=== PATIENT | female | born 1990 | race Caucasian/White ===

== ENCOUNTER → 2017-07-26 14:24 | Outpatient (CLI) | payer OTHER, SELFPAY ==
[2017-07-26 15:27] LABS: hCG Titer Quant., Serum < 1 mIU/mL (<9 non-preg)
== END ==
PROVIDERS: Visit Provider Obstetrics & Gynecology
DX: N91.2 Amenorrhea, unspecified (principal)
CPT/HCPCS: 36415; 84702

== ENCOUNTER → 2017-10-11 15:51 | Outpatient (CLI) | payer OTHER, SELFPAY ==
[2017-10-11 18:43] LABS: Chlamydia Trachomatis by PCR Negative (Negative)
[2017-10-11 18:44] LABS: Neisserai gonorrhoeae by PCR Negative (Negative); Probe Check PASS; Sample Adequacy Control PASS; Specimen Processing Control PASS
[2017-10-19 10:58] LABS: HPV HC, High Risk Negative (Negative)
[2017-10-19 11:00] LABS: HPV Reflexed? YES, CHARGE PATIENT
== END ==
PROVIDERS: Visit Provider Obstetrics & Gynecology
DX: Z12.4 Encounter for screening for malignant neoplasm of cervix (principal); Z11.3 Encounter for screening for infections with a predominantly sexual mode of transmission
CPT/HCPCS: 87491; 87591; 87624; 88175; G0145

== ENCOUNTER → 2017-11-01 14:17 | Outpatient (CLI) | payer OTHER, SELFPAY ==
[2017-11-01 14:59] LABS: Absolute Lymphocyte Count 1.88 X10^3/ul (0.83-4.51); Absolute Neutrophil Count 5.6 X10^3/uL (2.0-7.7); Basophil# 0.01 X10^3/uL; Basophil% 0.1 % (0-1); Eosinophil# 0.18 X10^3/uL; Eosinophils% 2.2 % (0-5); Hematocrit 37.2 % (37-47); Hemoglobin 12.8 g/dl (12.0-15.0); Lymphocyte # 1.88 X10^3/ul (4.0); Lymphocyte % 22.8 % (19-41); Mean Corp Hgb Conc 34.4 g/gl (32-36); Mean Corpuscular Hgb 30.3 pg (27.0-32.0); Mean Corpuscular Volume 87.9 fL (81-99); Mean Platelet Vol. 10.2 fl (6.2-12.0); Monocyte# 0.56 X10^3/uL; Monocyte% 6.8 % (0-10); Neutrophil # 5.61 X10^3/uL (2.7-7.7); Neutrophil % 68.1 % (47-70); Platelet Count 195 K/mm3 (150-450); RBC Distribution Width CV 13.2 % (11.6-14.6); RBC Distribution Width SD 42.3 fl (35.1-43.9); Red Blood Count 4.23 M/mm3 (4.2-5.4); White Blood Count 8.2 K/mm3 (4.4-11.0)
[2017-11-01 15:01] LABS: POSITIVE COUNT NO; POSITIVE DIFFERENTIAL NO; POSITIVE MORPHOLOGY NO
[2017-11-01 15:09] LABS: Color, Urine Yellow (Yellow); Glucose, Dipstick Normal (Normal); Ketone-Dipstick Negative (Negative); Leukocyte Esterase-Dipstick Negative /ul (Negative); Nitrite-Dipstick Negative (Negative); Occult Blood-Urine Negative /ul (Negative); Protein-Dipstick Negative (Negative); Urine Bilirubin Dipstick Negative (Negative); Urine Clarity Clear (Clear); Urine Urobilinogen Normal (Normal); Urine pH 6.5 (5.0 - 8.0)
[2017-11-01 15:30] LABS: Thyroid Stim Hormone (TSH) 1.58 uIU/mL (0.358-3.74)
[2017-11-01 16:21] LABS: HIV - WCH Non-Reactive (Nonreactive)
[2017-11-02 14:17] LABS: HEPATITIS B SURFACE AG Negative (Negative); Hep C Antibodies <0.1 s/co ratio (0.0-0.9)
[2017-11-08 09:09] LABS: Prenatal RPR NONREACTIVE (NONREACTIVE)
== END ==
PROVIDERS: Visit Provider Obstetrics & Gynecology
DX: Z34.81 Encounter for supervision of other normal pregnancy, first trimester (principal)
CPT/HCPCS: 36415; 81002; 84443; 85025; 86703; 86762; 86803; 87340

== ENCOUNTER 2018-03-01 09:24 | Outpatient (CLI) | payer OTHER, SELFPAY ==
[2018-03-01 09:25] VITALS: BP 120/55; PULSE 134; RESP 16; TEMP 37.3; O2SAT 99; BMI 28.0
--- NOTE | 2018-03-01 09:43 | ED.DCSUM_ITS ---
- ER Visit Summary Date of Service: 03/01/18 Chief Complaint: Nausea and vomiting History of Present Illness: The patient is a 27 F 27 weeks who presents for 24 hours of nausea and vomiting. Patient has been having vomiting after any oral intake, including water. She has mild abdominal cramping after vomiting but otherwise no abdominal pain. No fever, chest pain, shortness of breath, cough, congestion, or urinary symptoms. Patient has had several normal stools but no diarrhea. She has not had issues with persistent nausea or vomiting during this . She has no other medical problems. She is on vitamins. Physical Examination: Vital signs: afebrile, normotensive and tachycardic, no hypoxia on room air General: well nourished, well developed, in no distress Skin: warm, dry, no rash, no pallor HEENT: normocephalic and atraumatic; PERRL, EOMI, moist mucous membranes Cardiovascular: Tachycardic rate and rhythm without murmurs, no peripheral edema, 2+ pulses all distal extremities Respiratory: No increased work of breathing, lungs are clear to auscultation bilaterally, no rales, rhonchi or wheezing Abdominal: Abdomen is soft, gravid, nontender with normoactive bowel sounds, no guarding or rebound, no masses MSK: Moves all extremities, no deformities, normal strength Neuro: Awake and alert, oriented ?4. No facial droop, sensation and motor function intact and symmetric Test Results: Abnormal Lab Results 03/01/18 03/01/18 03/01/18 09:55 09:55 09:55 WBC 6.1 RBC 3.95 L Hgb 12.7 Hct 36.6 L MCV 92.7 MCH 32.2 H MCHC 34.7 RDW 13.2 RDW Differential 45.2 H Plt Count 130 L MPV 10.1 Immature Gran % (Auto) 0.200 Neut % (Auto) 86.2 H Lymph % (Auto) 8.6 L [place] % (Auto) 4.6 Eos % (Auto) 0.2 Baso % (Auto) 0.2 Absolute Neuts (auto) 5.3 Absolute Lymphs (auto) 0.53 L Total Counted Not Reportable Sodium 136 Potassium 3.4 L Chloride 107 Carbon Dioxide 20.0 L Anion Gap 9 BUN 7 Creatinine 0.56 Estim Creat Clear Calc 156.31 Est GFR (MDRD) Af Amer 166 Est GFR (MDRD) Non-Af 137 BUN/Creatinine Ratio 12.5 Glucose 80 Calcium 8.3 L Total Bilirubin 0.40 AST 20 ALT 27 Alkaline Phosphatase 76 Total Protein 6.6 Albumin 2.9 L Globulin 3.7 Albumin/Globulin Ratio 0.8 L Lipase 116 Urine Color Yellow Urine Clarity Cloudy Urine pH 5.0 Ur Specific [place] 1.025 Urine Protein 30 H Urine Glucose (UA) Normal Urine Ketones 150 H Urine Occult Blood 25 H Urine Nitrite Negative Urine Bilirubin 1 H Urine Urobilinogen Normal Ur Leukocyte Esterase 500 H Urine RBC 0 SEEN Urine WBC 10-25 SEEN Ur Squamous Epith Cells 25-50 SEEN Urine Bacteria 0 SEEN Urine Mucus 0 SEEN Medications Given Discontinued Medications Lactated Ringer's () 1,000 mls @ 999 mls/hr IV .Q1H1M ANDRE Stop: 03/01/18 10:50 Last Admin: 03/01/18 09:56 Dose: 999 mls/hr Ondansetron HCl (Zofran) 4 mg IV X1 ONE Stop: 03/01/18 09:41 Last Admin: 03/01/18 09:56 Dose: 4 mg Emergency Department Course and Treatment: Patient was given IV fluids and Zofran. heart rate was 147. Labs were performed, showing no leukocytosis, no anemia, no electrolyte derangements, and normal hepatic function. Urine showed gross contamination with epithelial cells, no bacteriuria. Ketones present and specific gravity elevated consistent with dehydration. After receiving IV fluids and Zofran, patient was feeling better. She had no further nausea. Heart rate now is 90. Patient was given a p.o. challenge and tolerated it. Patient was discussed with Dr. Harmeet Reyes who requested the patient be discharged to the [facility] [place] for further evaluation and monitoring of the baby. Patient was amenable to this plan. She was discharged with her symptoms greatly improved. Treatment Plan: [] Disposition: [] Impression: Nausea and vomiting, dehydration, 27 weeks This note was generated with [employer] dictation software. It may contain incorrect words, spelling, and punctuation that were not noted in review of the chart prior to signing ED Disposition - Plan for ED Patient: Disposition: Acute Care Hospital [facility] Chief Complaint: Nausea/Vomiting
[2018-03-01] MEDS: Lactated Ringers 1,000 ML 999 ML IV (09:56)
[2018-03-01] MEDS: Ondansetron 4 MG/2 ML Vial IV (09:56)
[2018-03-01 10:07] LABS: Bacteria 0 SEEN /hpf (None Seen); Mucous, Urine 0 SEEN /hpf (<or=2+); Red Blood Cells-Urine 0 SEEN /hpf (0-5)
[2018-03-01 10:12] LABS: Absolute Lymphocyte Count 0.53 X10^3/ul (0.83-4.51); Absolute Neutrophil Count 5.3 X10^3/uL (2.0-7.7); Basophil# 0.01 X10^3/uL; Basophil% 0.2 % (0-1); Eosinophil# 0.01 X10^3/uL; Eosinophils% 0.2 % (0-5); Hematocrit 36.6 % (37-47); Hemoglobin 12.7 g/dl (12.0-15.0); Lymphocyte # 0.53 X10^3/ul (4.0); Lymphocyte % 8.6 % (19-41); Mean Corp Hgb Conc 34.7 g/gl (32-36); Mean Corpuscular Hgb 32.2 pg (27.0-32.0); Mean Corpuscular Volume 92.7 fL (81-99); Mean Platelet Vol. 10.1 fl (6.2-12.0); Monocyte# 0.28 X10^3/uL; Monocyte% 4.6 % (0-10); Neutrophil # 5.29 X10^3/uL (2.7-7.7); Neutrophil % 86.2 % (47-70); Platelet Count 130 K/mm3 (150-450); RBC Distribution Width CV 13.2 % (11.6-14.6); RBC Distribution Width SD 45.2 fl (35.1-43.9); Red Blood Count 3.95 M/mm3 (4.2-5.4); White Blood Count 6.1 K/mm3 (4.4-11.0)
[2018-03-01 10:13] LABS: Differential Indicated SCAN CRITERIA MET; POSITIVE COUNT NO; POSITIVE DIFFERENTIAL YES; POSITIVE MORPHOLOGY NO
[2018-03-01 10:15] LABS: Color, Urine Yellow (Yellow); Glucose, Dipstick Normal (Normal); Ketone-Dipstick 150 mg/dl (Negative); Leukocyte Esterase-Dipstick 500 /ul (Negative); Nitrite-Dipstick Negative (Negative); Occult Blood-Urine 25 /ul (Negative); Protein-Dipstick 30 mg/dl (Negative); Specific Gravity, Urine 1.025 (1.002-1.030); Urine Bilirubin Dipstick 1 mg/dL (Negative); Urine Clarity Cloudy (Clear); Urine Urobilinogen Normal (Normal)
[2018-03-01 10:21] LABS: Squamous Epithelial Cells - UA 25-50 SEEN /hpf (5-10)
[2018-03-01 10:22] LABS: White Blood Cells 10-25 SEEN /hpf (0-5)
[2018-03-01 10:25] LABS: ALB/GLOB Ratio 0.8 RATIO (0.9-2.4); AST(SGOT) 20 U/L (15-37); Alanine Aminotransfer ALT/SGPT 27 U/L (13-56); Albumin, Serum 2.9 g/dL (3.2-5.0); Alkaline Phosphatase 76 U/L (45-117); Anion Gap 9 (5-15); BUN 7 mg/dL (7-18); BUN/Creat Ratio 12.5 RATIO (10-20); Calcium,Total 8.3 mg/dL (8.5-10.1); Chloride 107 mmol/L (98-107); Creatinine, Serum 0.56 mg/dL (0.55-1.02); EST Glomerular Filtration Rate 137 mL/min (>60); Est Glom Filt Rate - Afr Amer 166 mL/min (>60); Estimated Creatinine Clearance 156.31 ml/min; Globulin 3.7 g/dL (2.2-4.2); Glucose 80 mg/dL (74-106); Lipase 116 U/L (73-393); Potassium 3.4 mmol/L (3.5-5.1); Protein, Total 6.6 g/dL (6.4-8.2); Sodium Level 136 mmol/L (136-145)
[2018-03-01 11:29] VITALS: BP 111/62; PULSE 91; RESP 18; O2SAT 100
--- NOTE | 2018-03-01 12:04 | ED.DEP ---
ED Disposition - Plan for ED Patient: Disposition: Acute Care Hospital [facility] Chief Complaint: Nausea/Vomiting Instructions: ED Nausea Vomiting Referrals: Care Physician,No Primary [NON-STAFF] - Neisha Hawkins MD [STAFF PHYSICIAN] - 1-2 Days if not improving Additional Instructions: PLEASE GO IMMEDIATELY TO [facility] FOR AN EVALUATION BY OB.
--- NOTE | 2018-03-01 12:05 | DCINST.ED_ITS ---
ED Disposition - Plan for ED Patient: Disposition: Acute Care Hospital [facility] Chief Complaint: Nausea/Vomiting Instructions: ED Nausea Vomiting Referrals: Care Physician,No Primary [NON-STAFF] - Neisha Hawkins MD [STAFF PHYSICIAN] - 1-2 Days if not improving Additional Instructions: PLEASE GO IMMEDIATELY TO [facility] FOR AN EVALUATION BY OB.
[2018-03-01 12:10] VITALS: BP 111/62; PULSE 91; RESP 18; O2SAT 99
[2018-03-01 12:46] VITALS: BMI 27.6
--- NOTE | 2018-03-01 23:55 | OB.TRI.NOTE ---
- Problem List (1) 26 weeks gestation of Status: Acute History of Present Illness Date of Service: 03/01/18 Was patient seen by the physician?: No Reason For Visit: N/V Final AMISHA: 06/01/18 Gestational age: 26 Weeks and 6 Days Allergies No Known Allergies Allergy (Verified 03/01/18 12:47) Physical Exam Vitals: Vital Signs Temp Pulse Resp BP Pulse Ox 99.1 F 91 18 111/62 99 03/01/18 09:25 03/01/18 12:10 03/01/18 12:10 03/01/18 12:10 03/01/18 12:10 NST - FHR Rate Baby A Baseline: 150 Variability:: Minimal Accelerations:: None Decelerations:: Variable NST Reactive:: Appropriate for gestational age FHR Category:: Category II Uterine Activity:: none Impression/Plan Supervision of normal first , second trimester -Sent from ER for NST following evaluation for nausea and vomiting, now resolved - status AGA, d/c home
== END 2018-03-01 13:50 | disposition home or self-care (01) ==
LOC: ED 12:05 → WPOUT 12:42 → WP 12:43
PROVIDERS: Emergency Provider Emergency Medicine; Family Provider Internal Medicine; PCP Internal Medicine; Visit Provider Obstetrics & Gynecology
DX: O21.2 Late vomiting of pregnancy (principal); O99.283 Endocrine, nutritional and metabolic diseases complicating pregnancy, third trimester; E86.0 Dehydration; Z3A.27 27 weeks gestation of pregnancy
CPT/HCPCS: 59025; 59050; 80053; 81001; 83690; 85025; 96361; 96374; 99218; 99283; J7120; A4216; G0378; J2405

== ENCOUNTER → 2018-03-11 17:05 | Outpatient (CLI) | payer OTHER, SELFPAY ==
[2018-03-11 17:14] LABS: Hemoglobin 11.2 g/dl (12.0-15.0); Mean Corp Hgb Conc 33.9 g/gl (32-36); Mean Corpuscular Hgb 31.7 pg (27.0-32.0); Mean Corpuscular Volume 93.5 fL (81-99); Mean Platelet Vol. 10.7 fl (6.2-12.0); Platelet Count 166 K/mm3 (150-450); RBC Distribution Width CV 13.3 % (11.6-14.6); RBC Distribution Width SD 45.7 fl (35.1-43.9); Red Blood Count 3.53 M/mm3 (4.2-5.4); Scan Indicated on CBC? Y/N NO; White Blood Count 8.1 K/mm3 (4.4-11.0)
[2018-03-11 17:54] LABS: Glucose Challenge Gest 1H 50g 132 mg/dL (70-140)
== END ==
PROVIDERS: Referring Provider Obstetrics & Gynecology; Visit Provider Obstetrics & Gynecology
DX: Z34.83 Encounter for supervision of other normal pregnancy, third trimester (principal)
CPT/HCPCS: 82950; 85027

== ENCOUNTER → 2018-05-02 14:10 | Outpatient (CLI) | payer OTHER, SELFPAY ==
--- OUTSIDE RECORDS SUMMARY | 2018-06-27 13:44 | XMS RPT_ITS ---
:1990 Author Organization [place] Care Team Providers Name Role Phone Neisha Hawkins Attending Unavailable Neisha Hawkins Attending Unavailable Neisha Hawkins Referring Unavailable Bhargavi Weeks Primary Care Unavailable Yue Gipson Attending Unavailable Neisha Hawkins Attending Unavailable Primay Care Physicia, No Primary Care Unavailable Neisha Hawkins Attending Unavailable Neisha Hawkins Referring Unavailable Primay Care Physicia, No Primary Care Unavailable Neisha Hawkins Attending Unavailable Peng Carlos Attending Unavailable Peng Carlos Referring Unavailable Primay Care Physicia, No Primary Care Unavailable PROBLEMS PROBLEMS DATE TYPE CONDITION / CODE ATTENDING STATUS SOURCE 05/02/2018 Unknown Z36.85 - Encounter Neisha Hawkins Active [place] for [facility] screening for Hospital Streptococcus B / Repository Z36.85(ICD-10) 03/13/2018 Unknown Z34.83 - Encounter Neisha Hawkins Active [place] for supervision of Community other normal Hospital , third Repository trimester / Z34.83(ICD-10) 11/01/2017 Unknown Z34.81 - Encounter Neisha Hawkins Active [place] for supervision of Community other normal Hospital , first Repository trimester / Z34.81(ICD-10) 10/12/2017 Unknown Z12.4 - Encounter Neisha [facility] [place] [facility] screening for [facility] malignant neoplasm Hospital of cervix / Repository Z12.4(ICD-10) 10/12/2017 Unknown Z11.3 - Encounter Neisha Hawkins [facility] [place] for screening for [facility] infections with a Hospital predominantly Repository sexual mode of transmission / Z11.3(ICD-10) 07/26/2017 Unknown N91.2 - Amenorrhea, Neisha Hawkins Active [place] unspecified / Community N91.2(ICD-10) Hospital Repository PROCEDURES PROCEDURES No Procedure Records FoundRESULTS RESULTS Observed: 05/02/2018 Status: F Source: [place] CULTURE, GROUP B 10:45 AM [facility] STREPTOCOCCUS REPOSITORY Comments: VAGINAL/RECTAL JEFFRY Culture Group B Beta Streptococcus is not isolated. Performed By: #### M100.1800 #### [facility] [address] [place], [address] CBC-COMPLETE BLOOD CNT Collected: 03/11/2018 Status: F Source: [place] NO DIFF 4:20 PM [facility] REPOSITORY TYPE CODE TESTS RESULT OUT OF RANGE REFERENCE UNITS LAB L100.1000 4.4-11.0 K/mm3 Normal WBC 8.1 LAB L100.1200 4.2-5.4 M/mm3 Low RBC 3.53 LAB L100.1300 12.0-15.0 g/dl Low HGB 11.2 LAB L100.1400 37-47 % Low HCT 33.0 LAB L100.1500 81-99 fL Normal MCV 93.5 LAB L100.1600 27.0-32.0 pg Normal MCH 31.7 LAB L100.1700 32-36 g/gl Normal MCHC 33.9 LAB L100.1810 11.6-14.6 % Normal RDW CV 13.3 LAB L100.1820 35.1-43.9 fl High RDW SD 45.7 LAB L100.1900 150-450 K/mm3 Normal PLT 166 LAB L100.2000 6.2-12.0 fl Normal MPV 10.7 Performed By: #### L100.0500 #### [facility] [address] [place], [address] GLUCOSE CHALLENGE GEST Collected: 03/11/2018 Status: F Source: [place] 1H 50G 4:20 PM [facility] REPOSITORY TYPE CODE TESTS RESULT OUT OF RANGE REFERENCE UNITS LAB L501.0250 70-140 mg/dL Normal GLU GEST 132 50g 1H Performed By: #### L501.0250 #### [facility] [address] [place], [address] EMERGENCY DEPARTMENT Observed: 03/01/2018 Status: F Source: [place] SUMMARY 5:55 PM [facility] REPOSITORY [facility] Medical Records Department [address] [place] [address] Emergency Department Summary 03/01/18 0941 MR#: [id number] Acct: [id number] Name: ALMA SCHULZ Rep #: [id number] : 1990 27 From: Concepcion Pedersen MD PCP: Bhargavi Weeks DO Status: DEP CLI - ER Visit Summary Date of Service: 03/01/18 Chief Complaint: Nausea and vomiting History of Present Illness: The patient is a 27 F 27 weeks who presents for 24 hours of nausea and vomiting. Patient has been having vomiting after any oral intake, including water. She has mild abdominal cramping after vomiting but otherwise no abdominal pain. No fever, chest pain, shortness of breath, cough, congestion, or urinary symptoms. Patient has had several normal stools but no diarrhea. She has not had issues with persistent nausea or vomiting during this . She has no other medical problems. She is on vitamins. Physical Examination: Vital signs: afebrile, normotensive and tachycardic, no hypoxia on room air General: well nourished, well developed, in no distress Skin: warm, dry, no rash, no pallor HEENT: normocephalic and atraumatic; PERRL, EOMI, moist mucous membranes Cardiovascular: Tachycardic rate and rhythm without murmurs, no peripheral edema, 2+ pulses all distal extremities Respiratory: No increased work of breathing, lungs are clear to auscultation bilaterally, no rales, rhonchi or wheezing Abdominal: Abdomen is soft, gravid, nontender with normoactive bowel sounds, no guarding or rebound, no masses MSK: Moves all extremities, no deformities, normal strength Neuro: Awake and alert, oriented 4. No facial droop, sensation and motor function intact and symmetric Test Results: Abnormal Lab Results Medications Given Discontinued Medications Lactated Ringer's () 1,000 mls @ 999 mls/hr IV .Q1H1M ANDRE Stop: 03/01/18 10:50 Last Admin: 03/01/18 09:56 Dose: 999 mls/hr Ondansetron HCl (Zofran) 4 mg IV X1 ONE Stop: 03/01/18 09:41 Last Admin: 03/01/18 09:56 Dose: 4 mg Emergency Department Course and Treatment: Patient was given IV fluids and Zofran. heart rate was 147. Labs were performed, showing no leukocytosis, no anemia, no electrolyte derangements, and normal hepatic function. Urine showed gross contamination with epithelial cells, no bacteriuria. Ketones present and specific gravity elevated consistent with dehydration. After receiving IV fluids and Zofran, patient was feeling better. She had no further nausea. Heart rate now is 90. Patient was given a p.o. challenge and tolerated it. Patient was discussed with Dr. Harmeet Reyes who requested the patient be discharged to the [facility] for further evaluation and monitoring of the baby. Patient was amenable to this plan. She was discharged with her symptoms greatly improved. Treatment Plan: [] Disposition: [] Impression: Nausea and vomiting, dehydration, 27 weeks This note was generated with Rettyation software. It may contain incorrect words, spelling, and punctuation that were not noted in review of the chart prior to signing ED Disposition - Plan for ED Patient: Disposition: [facility] Chief Complaint: Nausea/Vomiting What to do if you have Problems For any increased pain, shortness of breath, bleeding, nausea or vomiting, chest pain, or any unexpected problems, contact your Primary Care Provider. Call [facility] ([phone]) or report to the closest Emergency Room. Call 911 if necessary. 03/01/18 1755 <Electronically signed by Concepcion Pedersen MD> Date Concepcion Pedersen MD Cosigner Signature (If Indicated): Date CC: Bhargavi Weeks DO DISCHARGE INSTRUCTION Observed: 03/01/2018 Status: F Source: [place] 5:24 PM [facility] REPOSITORY [facility] Medical Records Department [address] [place] [address] Discharge Instruction 03/01/18 1204 MR#: [id number] Acct: [id number] Name: ALMA SCHULZ Rep #: [id number] : 1990 27 From: Concepcion Pedersen MD PCP: Bhargavi Weeks DO Status: [facility] ED Disposition - Plan for ED Patient: Disposition: [facility] Chief Complaint: Nausea/Vomiting Instructions: ED Nausea Vomiting Referrals: Care Physician,No Primary [NON-STAFF] - Neisha Hawkins MD [STAFF PHYSICIAN] - 1-2 Days if not improving Additional Instructions: PLEASE GO IMMEDIATELY TO THE [facility] AT [facility] FOR AN EVALUATION BY OB. What to do if you have Problems For any increased pain, shortness of breath, bleeding, nausea or vomiting, chest pain, or any unexpected problems, contact your Primary Care Provider. Call [facility] ([phone]) or report to the closest Emergency Room. Call 911 if necessary. 03/01/18 8694 <Electronically signed by Concepcion Pedersen MD> Date Concepcion Pedersen MD Cosigner Signature (If Indicated): Date CC: Bhargavi Weeks DO CBC W/DIFF, AUTOMATED Collected: 03/01/2018 Status: F Source: [place] 9:55 AM [facility] REPOSITORY TYPE CODE TESTS RESULT OUT OF RANGE REFERENCE UNITS LAB L100.1000 4.4-11.0 K/mm3 Normal WBC 6.1 LAB L100.1200 4.2-5.4 M/mm3 Low RBC 3.95 LAB L100.1300 12.0-15.0 g/dl Normal HGB 12.7 LAB L100.1400 37-47 % Low HCT 36.6 LAB L100.1500 81-99 fL Normal MCV 92.7 LAB L100.1600 27.0-32.0 pg High MCH 32.2 LAB L100.1700 32-36 g/gl Normal MCHC 34.7 LAB L100.1810 11.6-14.6 % Normal RDW CV 13.2 LAB L100.1820 35.1-43.9 fl High RDW SD 45.2 LAB L100.1900 150-450 K/mm3 Low PLT 130 LAB L100.2000 6.2-12.0 fl Normal MPV 10.1 LAB L100.2100 47-70 % High NEUT% 86.2 LAB L100.2200 19-41 % Low LY% 8.6 LAB L100.2300 0-10 % Normal MONO% 4.6 LAB L100.2400 0-5 % Normal EO% 0.2 LAB L100.2500 0-1 % Normal BASO% 0.2 LAB L100.2550 0.0-0.9 % Normal IM GRAN % 0.200 Result Comment: IG% - Immature Granulocytes (promyelocytes, myelocytes and metamyelocytes) > 1% indicates that a LEFT SHIFT is Present. LAB L100.2620 2.0-7.7 X10 3/uL Normal Absolute Neut 5.3 LAB L100.2720 0.83-4.51 X10 3/ul Low Absolute Lymph 0.53 Performed By: #### L100.0100 #### [facility] [address] [place], [place], [address] URINALYSIS, COMPLETE Collected: 03/01/2018 Status: F Source: [place] 9:55 AM [facility] REPOSITORY Order Comment: CRITICAL VALUE VERIFIED. CALLED TO SBURNS 03/01/18 1016 Danelle Yo. RESULTS READ BACK BY SAME . How was Urine Obtained? CLEAN CATCH TYPE CODE TESTS RESULT OUT OF RANGE REFERENCE UNITS LAB L400.3000 Yellow COLOR Normal Yellow LAB L400.3050 Clear Normal CLARITY Cloudy LAB L400.3200 Normal mg/dl Normal GLUCOSE, UR Normal LAB L400.3300 Negative mg/dL High BILIRUBIN URINE 1 Result Comment: COLOR OF URINE MAY AFFECT DIPSTICK RESULTS. LAB L400.3400 Negative mg/dl High KETONE UR 150 Result Comment: CRITICAL VALUE *H LAB L400.3465 1.002-1.030 Normal SP.GR. DIPSTX 1.025 LAB L400.3550 5.0 - 8.0 pH Normal UR 5.0 LAB L400.3600 Negative mg/dl High 30 PROT DIPSTX LAB L400.3700 Normal mg/dl Normal UROBILI Normal LAB L400.3750 Negative Normal NITRITE UR Negative LAB L400.3780 Negative /ul High 25 OCCULT BLOOD-UR LAB L400.3800 Negative /ul High LEUK ESTERASE 500 LAB L400.4050 0-5 /hpf Normal WBC 10-25 SEEN LAB L400.4100 0-5 /hpf 0 Normal RBC-UA SEEN LAB L400.4150 5-10 /hpf Normal SQUAM EPI 25-50 SEEN LAB L400.4300 None Seen /hpf 0 Normal BACTERIA SEEN LAB L400.4350 <or=2+ /hpf 0 Normal MUCUS, URINE SEEN Performed By: #### L400.0001 #### [facility] [address] [place], [place], [id number] COMPREHENSIVE METABOLIC Collected: 03/01/2018 Status: F Source: [place] POLO 9:55 AM [facility] REPOSITORY TYPE CODE TESTS RESULT OUT OF RANGE REFERENCE UNITS LAB L501.0100 74-106 mg/dL Normal GLU 80 Result Comment: Please note revised GLUCOSE reference range effective 2017. LAB L501.1000 7-18 mg/dL Normal BUN 7 LAB L501.1100 0.55-1.02 mg/dL Normal CREAT,SERUM 0.56 Result Comment: The validity of the calculated GFR AND GFRAA in patients over 70 years has not been determined. Clinical correlation is essential. LAB L501.1110 >60 mL/min Normal EST GFR 137 Result Comment: Non- GFR Calc LAB L501.1115 >60 mL/min Normal EST GFR - AA 166 Result Comment: GFR Calc LAB L501.1255 ml/min Normal Estimated CRCL 156.31 LAB L501.1300 10-20 RATIO BUN/CRE Normal 12.5 LAB L501.1500 6.4-8. g/dL 2 T PROT Normal 6.6 LAB L501.1800 3.2-5. g/dL Low 0 ALB 2.9 LAB L501.1950 2.2-4. g/dL 2 GLOB Normal 3.7 LAB L501.2000 0.9-2. RATIO Low 4 A/G 0.8 LAB L501.2200 8.5-10 mg/dL Low .1 CA 8.3 LAB L501.4100 15-37 U/L AST Normal 20 LAB L501.4305 45-117 U/L ALK P Normal 76 LAB L501.4405 13-56 U/L ALT Normal 27 LAB L501.4600 0.20-1 mg/dL .00 T BILI Normal 0.40 LAB L501.5300 136-14 mmol/L 5 NA Normal 136 LAB L501.5600 3.5-5. mmol/L Low 1 K 3.4 LAB L501.5900 98-107 mmol/L CL Normal 107 LAB L501.6100 21.0-3 mmol/L Low 2.0 CO2 20.0 LAB L501.6200 5-15 GAP Normal 9 Performed By: #### L500.4050, L501.2450 #### [facility] [address] [place], [address] LIPASE Collected: 03/01/2018 Status: F Source: [place] 9:55 AM [facility] REPOSITORY TYPE CODE TESTS RESULT OUT OF RANGE REFERENCE UNITS LAB L501.2450 73-393 U/L Normal LIPASE 116 Performed By: #### L500.4050, L501.2450 #### [facility] [address] [place], [address] CBC W/DIFF, AUTOMATED Collected: 11/01/2017 Status: F Source: [place] 2:19 PM [facility] REPOSITORY TYPE CODE TESTS RESULT OUT OF RANGE REFERENCE UNITS LAB L100.1000 4.4-11.0 K/mm3 Normal WBC 8.2 LAB L100.1200 4.2-5.4 M/mm3 Normal RBC 4.23 LAB L100.1300 12.0-15.0 g/dl Normal HGB 12.8 LAB L100.1400 37-47 % Normal HCT 37.2 LAB L100.1500 81-99 fL Normal MCV 87.9 LAB L100.1600 27.0-32.0 pg Normal MCH 30.3 LAB L100.1700 32-36 g/gl Normal MCHC 34.4 LAB L100.1810 11.6-14.6 % Normal RDW CV 13.2 LAB L100.1820 35.1-43.9 fl Normal RDW SD 42.3 LAB L100.1900 150-450 K/mm3 Normal PLT 195 LAB L100.2000 6.2-12.0 fl Normal MPV 10.2 LAB L100.2100 47-70 % Normal NEUT% 68.1 LAB L100.2200 19-41 % Normal LY% 22.8 LAB L100.2300 0-10 % Normal MONO% 6.8 LAB L100.2400 0-5 % Normal EO% 2.2 LAB L100.2500 0-1 % Normal BASO% 0.1 LAB L100.2550 0.0-0.9 % Normal IM GRAN % 0.000 Result Comment: IG% - Immature Granulocytes (promyelocytes, myelocytes and metamyelocytes) > 1% indicates that a LEFT SHIFT is Present. LAB L100.2620 2.0-7.7 X10 3/uL Normal Absolute Neut 5.6 LAB L100.2720 0.83-4.51 X10 3/ul Normal Absolute Lymph 1.88 Performed By: #### L100.0100 #### [facility] [address] [place], [place], [id number] URINALYSIS, ROUTINE Collected: 11/01/2017 Status: F Source: [place] (DIPSTICK) 2:19 PM [facility] REPOSITORY Order Comment: How was Urine Obtained? Urine, Random TYPE CODE TESTS RESULT OUT OF RANGE REFERENCE UNITS LAB L400.3000 Yellow COLOR Normal Yellow LAB L400.3050 Clear Normal CLARITY Clear LAB L400.3200 Normal mg/dl Normal GLUCOSE, UR Normal LAB L400.3300 Negative mg/dL Normal BILIRUBIN URINE Negative LAB L400.3400 Negative mg/dl Normal KETONE UR Negative LAB L400.3465 1.002-1.030 Normal SP.GR. DIPSTX 1.010 LAB L400.3550 5.0 - 8.0 pH UR Normal 6.5 LAB L400.3600 Negative mg/dl PROT Normal DIPSTX Negative LAB L400.3700 Normal mg/dl Normal UROBILI Normal LAB L400.3750 Negative Normal NITRITE UR Negative LAB L400.3780 Negative /ul Normal OCCULT BLOOD-UR Negative LAB L400.3800 Negative /ul LEUK Normal ESTERASE Negative Performed By: #### L400.2011 #### [facility] [address] [place], [place], [id number] THYROID STIM HORMONE Collected: 11/01/2017 Status: F Source: [place] (TSH) 2:19 PM [facility] REPOSITORY TYPE CODE TESTS RESULT OUT OF RANGE REFERENCE UNITS LAB L501.9520 0.358-3.74 uIU/mL Normal TSH 1.58 Performed By: #### L501.9520 #### [facility] [address] [place], [place], [address] RUBELLA IGG Collected: 11/01/2017 Status: F Source: [place] 2:19 PM [facility] REPOSITORY TYPE CODE TESTS RESULT OUT OF RANGE REFERENCE UNITS LAB L509.4000 IU/mL Normal Rubella IgG 170.0 Result Comment: Antibody results Interpretation of Immune Status < 5 IU/ml Presumed Non-immune 5 - < 10 IU/ml Equivocal > or = 10 IU/ml Presumed Immune Performed By: #### L509.4000, L3890.6005 #### [facility] [address] [facility] [place], [place], [address] HIV - WC Collected: 11/01/2017 Status: F Source: [place] 2:19 PM [facility] REPOSITORY TYPE CODE TESTS RESULT OUT OF RANGE REFERENCE UNITS LAB L3890.6005 Nonreactive Normal HIV - [facility] Non-Reactive Performed By: #### L509.4000, L3890.6005 #### [facility] [address] [place], [place], [address] T AND S-NO Collected: 11/01/2017 Status: F Source: [place] CHARGE W/PNP 2:19 PM [facility] REPOSITORY Order Comment: Reason for Type AND Screen/Red Cells: Surgery? N TYPE CODE TESTS RESULT OUT OF RANGE REFERENCE UNITS LAB B10.0800 O Normal BLOOD POSITIVE TYPE GEL LAB B100.4050 Normal Ab SCREEN NEGATIVE GEL Performed By: #### B100.7550 #### [facility] [address] [facility] [place], [place], [address] HEPATITIS B SURFACE Collected: 11/01/2017 Status: F Source: [place] AG 2:19 PM [facility] REPOSITORY TYPE CODE TESTS RESULT OUT OF RANGE REFERENCE UNITS LAB L3100.0400 Negative Normal HB Negative SURF AG Result Comment: Performed at: [facility] [address] [id number] Excellence Leader: Mamadou Corrigan PhD, Phone: [phone] Performed By: #### L3100.0390, L3100.0625 #### [facility] (refer to report for specific site) refer to report for address and phone number HEPATITIS C ANTIBODIES Collected: 11/01/2017 Status: F Source: [place] 2:19 PM [facility] REPOSITORY TYPE CODE TESTS RESULT OUT OF RANGE REFERENCE UNITS LAB L3100.0650 0.0-0.9 s/co ratio Normal HEP C AB <0.1 Result Comment: Negative: < 0.8 Indeterminate: 0.8 - 0.9 Positive: > 0.9 The CDC recommends that a positive HCV antibody result be followed up with a HCV Nucleic Acid Amplification test (183357). Performed By: #### L3100.0390, L3100.0625 #### [facility] (refer to report for specific site) refer to report for address and phone number RPR Collected: 11/01/2017 Status: F Source: [place] 2:19 PM [facility] REPOSITORY TYPE CODE TESTS RESULT OUT OF REFERENCE UNITS RANGE LAB L700.5100 NONREACTIVE Normal RPR NONREACTIVE Performed By: #### L700.5100 #### [facility] [address] 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 [address] [facility] 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 of containers..01 ThinPrep Vial TYPE CODE TESTS RESULT OUT OF REFERENCE UNITS RANGE LAB L7400.0800 . High DIAGN Comment Result Comment: EPITHELIAL CELL ABNORMALITY. ATYPICAL SQUAMOUS CELLS OF UNDETERMINED SIGNIFICANCE. LAB L7400.0900 . Normal ADEQ Comment Result Comment: Satisfactory for evaluation. Endocervical and/or squamous metaplastic cells (endocervical component) are present. LAB L7400.1400 . Normal PERFORM Comment Result Comment: Mo Correa, Cremator (ASCP) LAB L7400.1700 . Normal SIGN Comment Result Comment: Jake Dukes MD, Pathologist LAB L7400.1720 . Normal Path prov. Comment ICD9 Result Comment: R87.610 LAB L7400.2575 . Normal TEST METHOD Comment Result Comment: This liquid based ThinPrep(R) pap test was screened with the use of an image guided system. LAB L7400.2600 . Normal . COMM LAB L7400.2700 . Normal PAPSMR Comment Result Comment: The Pap smear is a screening test designed to aid in the detection of premalignant and malignant conditions of the uterine cervix. It is not a diagnostic procedure and should not be used as the sole means of detecting cervical cancer. Both false-positive and false-negative reports do occur. LAB L7400.2800 . Normal HPV RFLX Comment Result Comment: See below for HPV testing results. LAB L7400.2900 Negative Normal HPV Negative HC,HGH RISK Result Comment: This high-risk HPV test detects thirteen high-risk types (16/18/31/33/35/39/45/51/52/56/58/59/68) without differentiation. Performed at: [facility] [address] [place] [id number] Excellence Leader: Ella Carlton MD, Phone: [phone] Performed at: [facility] [address] [id number] Excellence Leader: Madhavi Horta MD, Phone: [phone] Performed at: [facility] [id number] Excellence Leader: Madhavi Horta MD, Phone: [phone] Performed By: #### L7400.0350 #### [facility] (refer to report for specific site) refer to report for address and phone number HCG TITER QUANT., Collected: 07/26/2017 Status: F Source: [place] SERUM 2:26 PM [facility] REPOSITORY TYPE CODE TESTS RESULT OUT OF RANGE REFERENCE UNITS LAB L700.8000 <9 non-preg mIU/mL Normal HCG < 1 QUANT. Performed By: #### L700.8000 #### [facility] [address] [place], [address] ALLERGIES ALLERGIES DATE TYPE / CODE NAME / CODE REACTION SEVERITY SOURCE 03/01/2018 Drug No Known Unknown [facility] Allergy/4160 Allergies/F00 [facility] [address](SNOMED 4243213(RXNOR Repository CT) M) ENCOUNTERS ENCOUNTERS ADMIT/DISCHARGE ACCOUNT ADMITTING ENCOUNTER LOCATION SOURCE NUMBER CLASS 05/19/2018/ [id number] [facility] [place] [facility] ing:WPOUTRoom Repository : [id number] 05/02/2018 [id number] [facility] [place] 6 [facility] ing:LABSPEC Repository 03/11/2018 [id number] [facility] [place] [facility] ing:LABSPEC Repository 03/01/2018/ [id number] [facility] [place] [facility] 6 [facility] ing:WPOUTRoom Repository : [id number] 11/01/2017 [id number] [facility] [place] 3 [facility] ing:WOBLAB Repository 10/11/2017 [id number] [facility] [place] 9 [facility] ing:LABSPEC Repository 07/26/2017 [id number] [facility] [place] [facility] ing:WOBLAB Repository PAYERS PAYERS ENCOUNTER GUARANTOR PAYER SUBSCRIBER SOURCE 05/19/2018 ALMA Gann Primary ALMA R [place] [id number] [place] Insurance:MEDICAL SKELLYDOB: [facility] [id number] [address]Chz: (856) Number: Repository [phone] ) [id number] Date:6917-83-30UI [address] [place] [address]LR: 05/19/2018 Secondary NOT GIVENUNK [place] Insurance:SELF PAY [facility] Number: Effective Repository Date:2018-05-19 05/02/2018 ALMA Gann Primary ALMA R [place] [id number] [place] Insurance:MEDICAL SKELLYDOB: [facility] [id number] [address]Fxp: (330) Number: Repository [phone] (HP) [id number] Date:1215-24-57LJ [address] [address]WV: 05/02/2018 Secondary NOT GIVENUNK [place] Insurance:SELF PAY [facility] Number: Effective Repository Date:2018-05-02 03/11/2018 ALMA R Primary ALMA R [place] [id number] [address] Insurance:MEDICAL SKELLYDOB: [facility] [place] Number: Repository [id number]: 330 [id number] [phone] (HP) Date:7007-31-28UW [address] [address]TR: 03/11/2018 Secondary NOT GIVENUNK [place] Insurance:SELF PAY [facility] Number: Effective Repository Date:2018-03-11 03/01/2018 ALMA R Primary ALMA R [place] [id number] [address] Insurance:MEDICAL SKELLYDOB: [facility] [place] Number: Repository [id number]: 330 [id number] [phone] () Date:1892-01-04VS [address] [address]MD: 03/01/2018 Secondary NOT GIVENUNK [place] Insurance:SELF PAY [facility] Number: Effective Repository Date:2018-03-01 11/01/2017 Alma Primary Alma Guadalupe [id number] Insurance:MEDICAL SkellyDOB: [facility] [place] Number: Repository [id number]: 330 [id number] [phone] (HP) Date:3485-67-77TT [address] [address]OQ: 11/01/2017 Secondary NOT GIVENUNK [place] Insurance:SELF PAY [facility] Number: Effective Repository Date:2017-11-01 10/11/2017 Alma Primary Alma [id number] [facility] [id number] Number: Repository [id number]: [id number] [phone] () Date:[id number], [place] [id number]: 10/11/2017 Secondary NOT GIVENUNK [place] Insurance:SELF PAY [facility] Number: Effective Repository Date:2017-10-11 07/26/2017 [facility] [id number] Insurance:[facility]ICAL [id number] Number[facility] Repository [place] [id number]: [id number] Date:[id number], [place] [id number]: 07/26/2017 Secondary NOT GIVENUNK [place] Insurance:SELF PAY [facility] Number: Effective Repository Date:2017-07-26
== END ==
PROVIDERS: Visit Provider Obstetrics & Gynecology
DX: Z36.85 Encounter for antenatal screening for Streptococcus B (principal)
CPT/HCPCS: 87081

== ENCOUNTER 2018-05-19 17:45 | Outpatient (CLI) | payer OTHER, SELFPAY ==
[2018-05-19 18:15] VITALS: BMI 30.4
--- NOTE | 2018-05-20 20:47 | OB.TRI.NOTE ---
History of Present Illness Date of Service: 05/19/18 Was patient seen by the physician?: No Reason For Visit: R/WILSON Date of Service: 05/19/18 Final AMISHA: 06/01/18 Gestational age: 38 Weeks and 1 Days History of Present Illness: 38+ week intrauterine with some vaginal bleeding. Had a vaginal examination in the office earlier in the day. She describes the bleeding is very minimal. Patient denied contractions but some contractions were noted on the monitor. Good movement was noted. Allergies No Known Allergies Allergy (Verified 03/01/18 12:47) NST - FHR Rate Baby A NST Reactive:: Yes FHR Category:: Category I Impression/Plan 38+ week intrauterine with third trimester bleeding status post vaginal examination in office. NST was reactive. Some contractions noted but not felt by patient to any degree. Released to home with instructions to return with increased contractions or frequency of contractions or increased bleeding. Bleeding likely from vaginal examination in office and was reassured that this small amount of bleeding is likely normal after this type of examination.
--- NOTE | 2018-05-20 20:51 | OB.TRI.HP_ITS ---
History of Present Illness Date of Service: 05/19/18 Was patient seen by the physician?: No Reason For Visit: R/WILSON Date of Service: 05/19/18 Final AMISHA: 06/01/18 Gestational age: 38 Weeks and 1 Days History of Present Illness: 38+ week intrauterine with some vaginal bleeding. Had a vaginal examination in the office earlier in the day. She describes the bleeding is very minimal. Patient denied contractions but some contractions were noted on the monitor. Good movement was noted. Allergies No Known Allergies Allergy (Verified 03/01/18 12:47) NST - FHR Rate Baby A NST Reactive:: Yes FHR Category:: Category I Impression/Plan 38+ week intrauterine with third trimester bleeding status post vaginal examination in office. NST was reactive. Some contractions noted but not felt by patient to any degree. Released to home with instructions to return with increased contractions or frequency of contractions or increased bleeding. Bleeding likely from vaginal examination in office and was reassured that this s mall amount of bleeding is likely normal after this type of examination.
--- OUTSIDE RECORDS SUMMARY | 2018-08-21 09:48 | XMS RPT_ITS ---
:1990 Author Organization [place] Support Name Relationship Address Phone JAZZSAMSON Unavailable [address] + [place] [address] WOOCISCH Unavailable [address] + [place] [address] SAMSON SCHULZ Unavailable [address] + [place] [address] WOOCISCH Unavailable [address] + [place] [address] SAMSON SCHULZ Unavailable [address] + [place] [address] WOOCISCH Unavailable [address] + [place] [address] SAMSON SCHULZ Unavailable [address] + [place] [address] WOOCISCH Unavailable [address] + [place] [address] SAMSON SCHULZ Unavailable [address] + [place] [address] WOOCISCH Unavailable [address] + [place] [address] SAMSON SCHULZ Unavailable [address] + [place] [address] WOOCISCH Unavailable [address] + [place] [address] SAMSON SCHULZ Unavailable [address] + [place] [address] WOOCISCH Unavailable [address] + [place] [address] SAMSON SCHULZ Unavailable [address] + [place] [address] WOOCISCH Unavailable [address] + [place] [address] JAZZ, SAMSON Unavailable [address] + [place] [address] WOOCISCH Unavailable [address] [facility] + [place] [address] Care Team Providers Name Role Phone Peng Carlos Attending Unavailable Peng Carlos Referring Unavailable Primay Care Physicia, No Primary Care Unavailable Benekos, Neisha Attending Unavailable Benekos, Neisha Referring Unavailable Primay Care Physicia, No Primary Care Unavailable Benekos, Neisha Admitting Unavailable Benekos, Neisha Attending Unavailable Benekos, Neisha Attending Unavailable Benekos, Neisha Referring Unavailable Primay Care Physicia, No Primary Care Unavailable Benekos, Neisha Attending Unavailable Primay Care Physicia, No Primary Care Unavailable Desi, Bhargavi Primary Care Unavailable uYe Gipson Attending Unavailable Benekos, Neisha Attending Unavailable Benekos, Neisha Referring Unavailable Benekos, Neisha Admitting Unavailable Benekos, Neisha Attending Unavailable Desi, Bhargavi Primary Care Unavailable Benekos, Neisha Attending Unavailable PROBLEMS PROBLEMS DATE TYPE CONDITION / CODE ATTENDING STATUS SOURCE 05/02/2018 Unknown Z36.85 - Encounter Neisha Hawkins Active [place] for Community screening for Hospital Streptococcus B / Repository Z36.85(ICD-10) 03/13/2018 Unknown Z34.83 - Encounter Niurka Hawkinsily Active [place] for supervision of Community other normal Hospital , third Repository trimester / Z34.83(ICD-10) 11/01/2017 Unknown Z34.81 - Encounter Neisha Hawkins Active [place] for supervision of Community other normal Hospital , first Repository trimester / Z34.81(ICD-10) 10/12/2017 Unknown Z12.4 - Encounter Neisha Hawkins Active [place] for screening for Community malignant neoplasm Hospital of cervix / Repository Z12.4(ICD-10) 10/12/2017 Unknown Z11.3 - Encounter Niurka Hawkinsily Active [place] for screening for Community infections with a Hospital predominantly Repository sexual mode of transmission / Z11.3(ICD-10) 07/26/2017 Unknown N91.2 - Amenorrhea, Neisha Hawkins Active [place] unspecified / Community N91.2(ICD-10) Hospital Repository PROCEDURES PROCEDURES No Procedure Records FoundRESULTS RESULTS CBC-COMPLETE BLOOD CNT Collected: 06/02/2018 Status: F Source: [place] NO DIFF 7:45 AM [facility] REPOSITORY Order Comment: Reason for Laboratory Test Day #1 TYPE CODE TESTS RESULT OUT OF RANGE REFERENCE UNITS LAB L100.1000 4.4-11.0 K/mm3 Normal WBC 9.9 LAB L100.1200 4.2-5.4 M/mm3 Low RBC 3.14 LAB L100.1300 12.0-15.0 g/dl Low HGB 10.0 LAB L100.1400 37-47 % Low HCT 29.8 LAB L100.1500 81-99 fL Normal MCV 94.9 LAB L100.1600 27.0-32.0 pg Normal MCH 31.8 LAB L100.1700 32-36 g/gl Normal MCHC 33.6 LAB L100.1810 11.6-14.6 % Normal RDW CV 14.0 LAB L100.1820 35.1-43.9 fl High RDW SD 48.1 LAB L100.1900 150-450 K/mm3 Low PLT 128 LAB L100.2000 6.2-12.0 fl Normal MPV 11.0 Performed By: #### L100.0500 #### [facility] [address] [facility] [place], [address] DISCHARGE INSTRUCTION Observed: 06/01/2018 Status: F Source: [place] 2:46 PM [facility] REPOSITORY [facility] Medical Records Department [address] [place] [place] [address] Instructions for Home/Discharge Instructions 06/01/18 1445 MR#: [id number] Acct: [id number] Name: ALMA SCHULZ Azeem Rep #: [id number] : 1990 27 From: Neisha Hawkins MD PCP: Care Physician, No Primary Status: ADM IN Discharge Diet: No Restrictions Discharge Activity: May Shower, May Take a Tub Bath May resume sexual activity in: 4-6 weeks Additional Activity Instructions:: Nothing in the vagina for 4-6 weeks. You may return to work/school in 6 weeks. Additional Instructions: If you experience any of the following, contact your healthcare provider. * Bleeding that soaks a pad every hour for 2 hours * Fever 100.4 or higher * Unrelieved abdominal pain * Problems urinating (including inability to urinate or burning while urinating). * Visual changes * Severe headache * Flu-like symptoms * Pain or redness in one of both of your breasts * Pain, warmth, tenderness or swelling in your legs, especially the calf area * Frequent nausea and vomiting * Symptoms of depression or anxiety If you experience any of the following, call 911 or go to the nearest Emergency Room. * Chest pain * Problems breathing * Seizure activity * Partial or complete paralysis of a body part, slurred speech, weakness or drooping of the face, or a sudden inability to walk or hold your balance Allergies/Adverse Reactions: Allergies No Known Allergies Allergy (Verified 03/01/18 12:47) Medications to take at Discharge Multivitamin [Animal Shapes] 1 each PO DAILY 03/01/18 Please Follow Up With: Neisha Hawkins MD - [phone] When: Call to make an appointment with your doctor in 6 weeks. Primary Care Physician: Care Physician,No Primary [Primary Care Provider] - Test Results: Test results from this visit will be discussed in further detail at your follow-up appointment, if applicable. Proposed Discharge Date: 06/03/18 06/01/18 1446 <Electronically signed by Neisha Hawkins MD> Date Neisha Hawkins MD CC: No Primary Care Physician Signed OPERATIVE REPORT Observed: 06/01/2018 Status: F Source: [place] 2:45 PM [facility] REPOSITORY [facility] Medical Records Department [address] [place] [address] Operative Report 06/01/18 1440 MR#: [id number] Acct: [id number] Name: ALMA SCHULZ Rep #: [id number] : 1990 27 From: Neisha Hawkins MD PCP: Care Physician, No Primary Status: ADM IN Y Location: [id number] Vaginal Delivery Maternal Presentation: Spontaneous Rupture of Membranes Method of Induction: Pitocin Amniotic Membrane Rupture Type: Spontaneous at home Amniotic Fluid Description: Clear Final AMISHA: 06/01/18 Final AMISHA Source: US <20 weeks Gestational age: 40 Weeks and 0 Days Date of Procedure: 06/01/18 Pre-Operative Diagnosis: 39 6/7 wk SROM Post-Operative Diagnosis: 40 wk Surgery/ Procedure Performed: Spontaneous Vaginal Delivery Anesthesiologist: Vee Hernadez Type of Anesthesia: Epidural Description of Procedure: of a mcmahon viable female over intact perineum to 2nd deg laceration. Head delivered FRIDA. No nuchal cord. Shoulders delivered immediately after head. OP and nares bulb suctioned and vigorous and crying to maternal abdomen. Delayed cord clamping, then cord clamped x two and cut. routine cord blood for typing obtained. LGA but no dystocia. PP exam; 2nd deg posterior vaginal to perineal laceration. repaired under epidural to hemostatic and intact with 3-0 vicryl Placenta delivered by spont expulsion, expression. 3V cord, normal appearing, intact with trailing membranes. EBL 350 cc Pt and tolerated delivery well. to recovery, stable condition Ray Lili counts correct x two. Presentation: Vertex, FRIDA Placental Delivery Description: Spontaneous, Expressed Placenta Disposition: [facility] Cord Vessel Description: 3 Vessels Cord Entanglement: None Drain: Arrieta to straight drain Estimated Blood Loss: 350 Infant A gender: Female (1 minute): 8 (5 minute): 9 Episiotomy Description: None Laceration: Midline, Perineal Extension/lac, Vaginal Extension/lac, 2nd degree Medications given after delivery: IV Pitocin Complications: None 06/01/18 1445 <Electronically signed by Neisha Hawkins MD> Date Neisha Hawkins MD CC: No Primary Care Physician; Neisha Hawkins MD Signed CBC-COMPLETE BLOOD CNT Collected: 05/31/2018 Status: F Source: [place] NO DIFF 9:10 PM [facility] REPOSITORY TYPE CODE TESTS RESULT OUT OF RANGE REFERENCE UNITS LAB L100.1000 4.4-11.0 K/mm3 Normal WBC 8.6 LAB L100.1200 4.2-5.4 M/mm3 Low RBC 3.86 LAB L100.1300 12.0-15.0 g/dl Normal HGB 12.4 LAB L100.1400 37-47 % Low HCT 36.2 LAB L100.1500 81-99 fL Normal MCV 93.8 LAB L100.1600 27.0-32.0 pg High MCH 32.1 LAB L100.1700 32-36 g/gl Normal MCHC 34.3 LAB L100.1810 11.6-14.6 % Normal RDW CV 13.5 LAB L100.1820 35.1-43.9 fl High RDW SD 46.0 LAB L100.1900 150-450 K/mm3 Low PLT 147 LAB L100.2000 6.2-12.0 fl Normal MPV 12.0 Performed By: #### L100.0500 #### [facility] [address] [facility] [place], [place], [address] TYPE AND SCREEN Collected: 05/31/2018 Status: F Source: [place] 9:10 PM [facility] REPOSITORY Order Comment: Reason for Type AND Screen/Red Cells: TYPE CODE TESTS RESULT OUT OF RANGE REFERENCE UNITS LAB B10.0800 O Normal BLOOD TYPE GEL POSITIVE LAB B100.4000 Normal Antibody NEGATIVE Screen Performed By: #### B101.7450 #### [facility] [address] [place], [place], [id number] (ROM) RUPTURE OF Collected: 05/31/2018 Status: F Source: [place] [facility] 7:40 PM [facility] REPOSITORY TYPE CODE TESTS RESULT OUT OF REFERENCE UNITS RANGE LAB L205.1310 Negative High ROM POSITIVE Result Comment: Amniotic fluid present indicates rupture of Membranes. RESULTS CALLED TO [facility] 05/31/18 Mara Pineda. REPORT READ BACK BY SAME . Performed By: #### L205.1000 #### [facility] [address] [place], [place], [address] Observed: 05/02/2018 Status: F Source: [place] CULTURE, GROUP B 10:45 AM [facility] STREPTOCOCCUS REPOSITORY Comments: VAGINAL/RECTAL JEFFRY Culture Group B Beta Streptococcus is not isolated. Performed By: #### M100.1800 #### [facility] [address] [place], [place], [address] CBC-COMPLETE BLOOD CNT Collected: 03/11/2018 Status: F Source: [place] NO DIFF 4:20 PM [facility] REPOSITORY TYPE CODE TESTS RESULT OUT OF [...] MPV 10.7 Performed By: #### L100.0500 #### [facility] [address] [facility] [place], [address] GLUCOSE CHALLENGE GEST Collected: 03/11/2018 Status: F Source: [place] 1H 50G 4:20 PM [facility] REPOSITORY TYPE CODE TESTS RESULT OUT OF RANGE REFERENCE UNITS LAB L501.0250 70-140 mg/dL Normal GLU GEST 132 50g 1H Performed By: #### L501.0250 #### [facility] [address] [place] [place], [address] EMERGENCY DEPARTMENT Observed: 03/01/2018 Status: F Source: [place] SUMMARY 5:55 PM [facility] REPOSITORY [facility] Medical Records Department [address] [place] [address] Emergency Department Summary 03/01/18 0941 MR#: [id number] Acct: [id number] Name: ALMA SCHULZ Rep #: [id number] : 1990 27 From: Concepcion Pedersen MD [...] requested the patient be discharged to the [facility] for further evaluation and monitoring of the baby. Patient was amenable to this plan. She was discharged with her symptoms greatly improved. Treatment Plan: [] Disposition: [] Impression: Nausea and vomiting, dehydration, 27 weeks This note was generated with TurnTide dictation software. It may contain incorrect words, spelling, and punctuation that were not noted in review of the chart prior to signing ED Disposition - Plan for ED Patient: Disposition: [facility] Chief Complaint: Nausea/Vomiting What to do if you have Problems For any increased pain, shortness of breath, bleeding, nausea or vomiting, chest pain, or any unexpected problems, contact your Primary Care Provider. Call [facility] ([phone]) or report to the closest Emergency Room. Call 911 if necessary. 03/01/18 1755 <Electronically signed by Concepcion Pedersen MD> Date Concepcion Pedersen MD Cosigner Signature (If Indicated): Date CC: Bhargavi Weeks DO DISCHARGE INSTRUCTION Observed: 03/01/2018 Status: F Source: [place] 5:24 PM [facility] REPOSITORY [facility] Medical Records Department [address] [place] [address] Discharge Instruction 03/01/18 1204 MR#: [id number] Acct: [id number] Name: JAZZALMA Azeem Rep #: [id number] : 1990 27 From: Concepcion Pedersen MD PCP: Bhargavi Weeks DO Status: [facility] ED Disposition - Plan for ED Patient: Disposition: [facility] Chief Complaint: Nausea/Vomiting Instructions: ED Nausea Vomiting Referrals: Care Physician,No Primary [NON-STAFF] - Neisha Hawkins MD [STAFF PHYSICIAN] - 1-2 Days if not improving Additional Instructions: PLEASE GO IMMEDIATELY TO [facility] FOR AN EVALUATION BY OB. What to do if you have Problems For any increased pain, shortness of breath, bleeding, nausea or vomiting, chest pain, or any unexpected problems, contact your Primary Care Provider. Call [facility] ([phone]) or report to the closest Emergency Room. Call 911 if necessary. 03/01/18 1724 <Electronically signed by Concepcion Pedersen MD> Date Concepcion Pedersen MD Cosigner Signature (If Indicated): Date CC: Bhargavi Weeks DO CBC W/DIFF, AUTOMATED Collected: 03/01/2018 Status: F Source: [place] 9:55 AM [facility] REPOSITORY TYPE CODE TESTS RESULT OUT OF [...] Lymph 0.53 Performed By: #### L100.0100 #### [facility] [address] [place], [address] URINALYSIS, COMPLETE Collected: 03/01/2018 Status: F Source: [place] 9:55 AM [facility] REPOSITORY Order Comment: CRITICAL VALUE VERIFIED. CALLED [...] URINE SEEN Performed By: #### L400.0001 #### [facility] [address] [place], [address] COMPREHENSIVE METABOLIC Collected: 03/01/2018 Status: F Source: [place] [facility] 9:55 AM [facility] REPOSITORY TYPE CODE TESTS RESULT OUT OF [...] 9 Performed By: #### L500.4050, L501.2450 #### [facility] [address] [place], [address] LIPASE Collected: 03/01/2018 Status: F Source: [place] 9:55 AM [facility] REPOSITORY TYPE CODE TESTS RESULT OUT OF RANGE REFERENCE UNITS LAB L501.2450 73-393 U/L Normal LIPASE 116 Performed By: #### L500.4050, L501.2450 #### [facility] [address] [facility] [place], [address] CBC W/DIFF, AUTOMATED Collected: 11/01/2017 Status: F Source: [place] 2:19 PM [facility] REPOSITORY TYPE CODE TESTS RESULT OUT OF [...] Lymph 1.88 Performed By: #### L100.0100 #### [facility] [address] [facility] [address] [place], [place], [address] URINALYSIS, ROUTINE Collected: 11/01/2017 Status: F Source: [place] (DIPSTICK) 2:19 PM [facility] REPOSITORY Order Comment: How was Urine Obtained? [...] LEUK Normal ESTERASE Negative Performed By: #### L400.2010 #### [facility] [address] [facility] [place], [place], [address] THYROID STIM HORMONE Collected: 11/01/2017 Status: F Source: [place] (TSH) 2:19 PM [facility] REPOSITORY TYPE CODE TESTS RESULT OUT OF RANGE REFERENCE UNITS LAB L501.9520 0.358-3.74 uIU/mL Normal TSH 1.58 Performed By: #### L501.9520 #### [facility] [address] [facility] [place], [place], [address] RUBELLA IGG Collected: 11/01/2017 Status: F Source: [place] 2:19 PM [facility] REPOSITORY TYPE CODE TESTS RESULT OUT OF RANGE REFERENCE UNITS LAB L509.4000 IU/mL Normal Rubella IgG 170.0 Result Comment: Antibody results Interpretation of Immune Status < 5 IU/ml Presumed Non-immune 5 - < 10 IU/ml Equivocal > or = 10 IU/ml Presumed Immune Performed By: #### L509.4000, L3890.6005 #### [facility] [address] [place], [place], [address] HIV - [facility] Collected: 11/01/2017 Status: F Source: [place] 2:19 PM [facility] REPOSITORY TYPE CODE TESTS RESULT OUT OF RANGE REFERENCE UNITS LAB L3890.6005 Nonreactive Normal HIV - [facility] Non-Reactive Performed By: #### L509.4000, L3890.6005 #### [facility] [address] [place] [address]. [place], [address] T AND S-NO Collected: 11/01/2017 Status: F Source: [place] CHARGE W/PNP 2:19 PM [facility] REPOSITORY Order Comment: Reason for Type AND Screen/Red Cells: Surgery? N TYPE CODE TESTS RESULT OUT OF RANGE REFERENCE UNITS LAB B10.0800 O Normal BLOOD POSITIVE TYPE GEL LAB B100.4050 Normal Ab SCREEN NEGATIVE GEL Performed By: #### B100.7550 #### [facility] [address] [place] [address]. [place], [place], [address] HEPATITIS B SURFACE Collected: 11/01/2017 Status: F Source: [place] AG 2:19 PM [facility] REPOSITORY TYPE CODE TESTS RESULT OUT OF RANGE REFERENCE UNITS LAB L3100.0400 Negative Normal HB Negative SURF AG Result Comment: Performed at: [facility] [id number] Drier Operator: Mamadou Corrigan PhD, Phone: [phone] Performed By: #### L3100.0390, L3100.0625 #### [facility] (refer to report for specific site) refer to report for address and phone number HEPATITIS C ANTIBODIES Collected: 11/01/2017 Status: F Source: [place] 2:19 PM [facility] REPOSITORY TYPE CODE TESTS RESULT OUT OF RANGE REFERENCE UNITS LAB L3100.0650 0.0-0.9 s/co ratio Normal HEP C AB <0.1 Result Comment: Negative: < 0.8 Indeterminate: 0.8 - 0.9 Positive: > 0.9 The CDC recommends that a positive HCV antibody result be followed up with a HCV Nucleic Acid Amplification test (352341). Performed By: #### L3100.0390, L3100.0625 #### [facility] (refer to report for specific site) refer to report for address and phone number RPR Collected: 11/01/2017 Status: F Source: [place] 2:19 PM [facility] REPOSITORY TYPE CODE TESTS RESULT OUT OF REFERENCE UNITS RANGE LAB L700.5100 NONREACTIVE Normal RPR NONREACTIVE Performed By: #### L700.5100 #### [facility] [address] [facility] [place], [address] CT/NG [facility] BY PCR Collected: 10/11/2017 Status: F Source: [place] 3:30 PM [facility] REPOSITORY Order Comment: CYTOLOGY INFORMATION: - CLINICAL INFORMATION: - DATE LMP/MENOPAUSE: 07-25-17 LMP - COLLECTION VIAL: Thin Prep Vial - OPERATING ROOM TECHNOLOGIST SOURCE: CERVICAL/ENDOCERVICAL - COLLECTION TECHNIQUE: BRUSH/SPATULA TYPE CODE TESTS RESULT OUT OF RANGE REFERENCE UNITS LAB L8200.2100 Negative Normal Chlam Negative Trac PCR LAB L8200.2200 Negative Normal NG by Negative PCR Performed By: #### L8200.2000 #### [facility] [address] [facility] [place], [address] PAP I-G W/RFX HRHPV Collected: 10/11/2017 Status: F Source: [place] 3:30 PM [facility] REPOSITORY Order Comment: CYTOLOGY INFORMATION: - CLINICAL INFORMATION: - DATE LMP/MENOPAUSE: 07-25-17 LMP - COLLECTION VIAL: Thin Prep Vial - OPERATING ROOM TECHNOLOGIST SOURCE: CERVICAL/ENDOCERVICAL - COLLECTION TECHNIQUE: BRUSH/SPATULA Specimen Comment: [id number] Specimen Comment: No. of containers..01 ThinPrep Vial TYPE CODE TESTS RESULT OUT OF REFERENCE UNITS RANGE LAB L7400.0800 . High DIAGN Comment Result Comment: EPITHELIAL CELL ABNORMALITY. ATYPICAL SQUAMOUS CELLS OF UNDETERMINED SIGNIFICANCE. LAB L7400.0900 . Normal ADEQ Comment Result Comment: Satisfactory for evaluation. Endocervical and/or squamous metaplastic cells (endocervical component) are present. LAB L7400.1400 . Normal PERFORM Comment Result Comment: Mo Correa, Senior Field Engineer (ASCP) LAB L7400.1700 . Normal SIGN Comment [...] high-risk types (16/18/31/33/35/39/45/51/52/56/58/59/68) without differentiation. Performed at: [address] [id number] Drier Operator: Ella Carlton MD, Phone: [phone] Performed at: [address] [id number] Drier Operator: Madhavi Horta MD, Phone: [phone] [facility]formed at: [facility] [id number] Drier Operator: Madhavi Horta MD, Phone: [phone] Performed By: #### L7400.0350 #### [facility] (refer to report for specific site) refer to report for address and phone number HCG TITER QUANT., Collected: 07/26/2017 Status: F Source: [place] SERUM 2:26 PM [facility] REPOSITORY TYPE CODE TESTS RESULT OUT OF RANGE REFERENCE UNITS LAB L700.8000 <9 non-preg mIU/mL Normal HCG < 1 QUANT. Performed By: #### L700.8000 #### [facility] [address] [place], [address] ALLERGIES ALLERGIES DATE TYPE / CODE NAME / CODE REACTION SEVERITY SOURCE 03/01/2018 Drug No Known Unknown [facility] Allergy/4160 Allergies/F00 Hospital 04405(SNOMED [id number](RXNOR Repository CT) M) ENCOUNTERS ENCOUNTERS ADMIT/DISCHARGE ACCOUNT ADMITTING ENCOUNTER LOCATION SOURCE NUMBER CLASS 06/01/2018 [id number] [facility] [place] [address] [facility] ing:WP Repository 05/31/2018/ [id number] [facility] [place] 9 9 [facility] ing:WPRoom: Repository MR661Run: 1 05/19/2018/ [id number] [facility] [place] 8 5 [facility] ing:WPOUTRoom Repository : [id number] 05/02/2018 [id number] [facility] [place] 6 [facility] ing:LABSPEC Repository 03/11/2018 [id number] [facility] [place] 5 [facility] ing:LABSPEC Repository 03/01/2018/ [id number] [facility] [place] 8 6 [facility] ing:WPOUTRoom Repository : [id number] 11/01/2017 [id number] [facility] [place] 3 [facility] ing:WOBLAB Repository 10/11/2017 [id number] [facility] [place] 9 [facility] ing:LABSPEC Repository 07/26/2017 [id number] [facility] [place] 0 [facility] ing:WOBLAB Repository PAYERS PAYERS ENCOUNTER GUARANTOR PAYER SUBSCRIBER SOURCE 06/01/2018 ALMA Gann Primary ALMA R [place] [id number] SEAN Insurance:MEDICAL SKELLYDOB: [facility] [id number] Hospital [address]Rit: (330) Number: Repository [phone] () [id number] Date:[id number] [address] [place] [phone]: 06/01/2018 Secondary NOT GIVENUNK [place] Insurance:SELF PAY [facility] Number: Effective Repository Date:2018-04-23 05/31/2018 ALMA R Primary ALMA R [place] [id number] SE[place] Insurance:MEDICAL SKELLYDOB: [facility] [id number] [facility] [address]Dls: (330) Number: Repository [phone] () [id number] Date:[id number] [address] [place] [phone]: 05/31/2018 Secondary NOT GIVENUNK [place] Insurance:SELF PAY [facility] Number: Effective Repository Date:2018-05-31 05/19/2018 ALMA R Primary ALMA R [place] [id number] SEAN Insurance:MEDICAL SKELLYDOB: [facility] [id number] Hospital [address]Phl: (330) Number: Repository [phone] () [id number] Date:[id number] [address] [address]NS: 05/19/2018 Secondary NOT GIVENUNK [place] Insurance:SELF PAY [facility] Number: Effective Repository Date:2018-05-19 05/02/2018 ALMA R Primary ALMA R [place] [id number] SEAN Insurance:MEDICAL SKELLYDOB: [facility] [place] [id number] [address]Irp: (330) Number: Repository [phone] () [id number] Date:7473-04-97BS [address] [place] [address]JY: 05/02/2018 Secondary NOT GIVENUNK [place] Insurance:SELF PAY [facility] Number: Effective Repository Date:2018-05-02 03/11/2018 ALMA Gann Primary ALMA Guadalupe [id number] Insurance:MEDICAL SKELLYDOB: [facility] 5134[place]02[place] Number: Repository [id number]: 330 [id number] [phone] () Date:2072-54-40JZ [address] [address]WE: 03/11/2018 Secondary NOT GIVENUNK [place] Insurance:SELF PAY [facility] Number: Effective Repository Date:2018-03-11 03/01/2018 ALMA Gann Primary ALMA Guadalupe [id number] Insurance:MEDICAL SKELLYDOB: [facility] [id number] Number: Repository [id number]: 330 [id number] [phone] () Date:7318-82-24WH [address] [address]LA: 03/01/2018 Secondary NOT GIVENUNK [place] Insurance:SELF PAY [facility] Number: Effective Repository Date:2018-03-01 11/01/2017 Alma Guadalupe [id number] Insurance[facility] [id number] Number: Repository [id number]: 330 [id number] [phone] () Date:8772-77-13QJ [address] [address]WJ: 11/01/2017 Secondary NOT GIVENUNK [place] Insurance:SELF PAY [facility] Number: Effective Repository Date:2017-11-01 10/11/2017 Alma Guadalupe [id number] Insurance[facility] [id number] Number: Repository [id number]: 330 [id number] [phone] () Date:4745-41-63OO [address], [place] [address]PL: 10/11/2017 Secondary NOT GIVENUNK [place] Insurance:SELF PAY [facility] Number: Effective Repository Date:2017-10-11 07/26/2017 Alma Primary Alma Guadalupe [id number] Insurance:MEDICAL [facility] [id number], Number: Repository [place] [address]Rzl: [id number] Date:1108-84-42RI [address]) [address], [place] [address]CX: 07/26/2017 Secondary NOT GIVENUNK [place] Insurance:SELF PAY [facility] Number: Effective Repository Date:2017-07-26
== END 2018-05-19 18:35 | disposition home or self-care (01) ==
LOC: WPOUT 17:51 → WP 17:51
PROVIDERS: Referring Provider Obstetrics & Gynecology; Visit Provider Obstetrics & Gynecology
DX: O46.93 Antepartum hemorrhage, unspecified, third trimester (principal); Z3A.38 38 weeks gestation of pregnancy
CPT/HCPCS: 59025; 59050; 99218; G0378

== ENCOUNTER 2018-05-31 20:10 | Inpatient (IN) | payer OTHER, SELFPAY ==
[2018-05-31 20:00] VITALS: BMI 32.0
[2018-05-31 20:04] LABS: ROM Internal Control Test YES-OK TO RESULT pt. (Internal QC)
[2018-05-31 20:05] LABS: ROM Patient Test POSITIVE (Negative)
[2018-05-31] MEDS: Lactated Ringers 1,000 ML 50 ML IV (21:10)
[2018-05-31 21:34] LABS: Hematocrit 36.2 % (37-47); Hemoglobin 12.4 g/dl (12.0-15.0); Mean Corp Hgb Conc 34.3 g/gl (32-36); Mean Corpuscular Hgb 32.1 pg (27.0-32.0); Mean Corpuscular Volume 93.8 fL (81-99); Platelet Count 147 K/mm3 (150-450); RBC Distribution Width CV 13.5 % (11.6-14.6); Red Blood Count 3.86 M/mm3 (4.2-5.4); White Blood Count 8.6 K/mm3 (4.4-11.0)
[2018-05-31 21:36] LABS: Scan Indicated on CBC? Y/N NO
[2018-05-31] MEDS: Oxytocin 30 units/NS 500 ml 30 UNITS/500 ML IV.SOLN IV (22:49)
[2018-06-01] MEDS: Lactated Ringers 1,000 ML 50 ML IV ×3 (01:55→09:46)
--- NOTE | 2018-06-01 04:22 | PCM.PN.BLA ---
Progress Note 39 6/7 wk SROM Unable to check cervix per RN note 2/2 pt guarding Pitocin at 12 mIU/min EFM: 120-130 avg variability Accels . Occasional intermittent tracing of HR in 80s (likely maternal) UCs q 1 1/2 - 3 mins A/P: 40 wk SROM yesterday. Pitocin induction after SROM Continue pitocin.
[2018-06-01] MEDS: Ondansetron 4 MG/2 ML Vial IV (04:25)
--- NOTE | 2018-06-01 08:54 | PCM.PN.BLA ---
Progress Note 40 wk LABOR PROGRESS NOTE Comfortable now with epidural placed. AVSS Pitocin off as had made quick progress EFM 130 - 140s with accels avg variability and accelerations noted. Occasional HR in 90s ? maternal with position changes. UCs more spaced out off pitocin, had been up to 12 mIU/min (will restart) CX: 8/80/-2 Arrieta bulb reduced to above vtx A/P: 40 wk SROM Induction pitocin. Adequate progress. EFM reassuring. Restart pitocin prn . Watch progress, descent, tolerance of labor.
--- NOTE | 2018-06-01 13:40 | PCM.PN.BLA ---
Progress Note LABOR PROGRESS NOTE 40 wk SROM. Pitocin induction after SROM Comfortable w/ epidural AVSS EFM 140-150 avg variability. Accels. UCs q 2-4 mins Complete and pushing started. Called complete about 1 hr ago. comfortable with epidural, feeling pressure. A/P: 40 wk Reassuring FHR tracing. Progress to complete , pitocin induction after SROM. Anticipate
[2018-06-01] MEDS: Oxytocin 30 units/NS 500 ml 30 UNITS/500 ML IV.SOLN 334 UNITS IV (14:30)
--- NOTE | 2018-06-01 14:40 | PCM.OB.VAG ---
Vaginal Delivery Maternal Presentation: Spontaneous Rupture of Membranes Method of Induction: Pitocin Amniotic Membrane Rupture Type: Spontaneous at home Amniotic Fluid Description: Clear Final AMISHA: 06/01/18 Final AMISHA Source: US <20 weeks Gestational age: 40 Weeks and 0 Days Date of Procedure: 06/01/18 Pre-Operative Diagnosis: 39 6/7 wk SROM Post-Operative Diagnosis: 40 wk Surgery/ Procedure Performed: Spontaneous Vaginal Delivery Anesthesiologist: Vee Hernadez Type of Anesthesia: Epidural Description of Procedure: of a mcmahon viable female over intact perineum to 2nd deg laceration. Head delivered FRIDA. No nuchal cord. Shoulders delivered immediately after head. OP and nares bulb suctioned and infant vigorous and crying to maternal abdomen. Delayed cord clamping, then cord clamped x two and cut. routine cord blood for typing obtained. LGA but no dystocia. PP exam; 2nd deg posterior vaginal to perineal laceration. repaired under epidural to hemostatic and intact with 3-0 vicryl Placenta delivered by spont expulsion, expression. 3V cord, normal appearing, intact with trailing membranes. EBL 350 cc Pt and infant tolerated delivery well. to recovery, stable condition Ray Lili counts correct x two. Presentation: Vertex, FRIDA Placental Delivery Description: Spontaneous, Expressed Placenta Disposition: [facility] Cord Vessel Description: 3 Vessels Cord Entanglement: None Drain: Arrieta to straight drain Estimated Blood Loss: 350 A gender: Female (1 minute): 8 (5 minute): 9 Episiotomy Description: None Laceration: Midline, Perineal Extension/lac, Vaginal Extension/lac, 2nd degree Medications given after delivery: IV Pitocin Complications: None
--- NOTE | 2018-06-01 14:45 | PCM.DCVAG ---
Discharge Diet: No Restrictions Discharge Activity: May Shower, May Take a Tub Bath May resume sexual activity in: 4-6 weeks Additional Activity Instructions:: Nothing in the vagina for 4-6 weeks. You may return to work/school in 6 weeks. Additional Instructions: If you experience any of the following, contact your healthcare provider. Bleeding that soaks a pad every hour for 2 hours Fever 100.4 or higher Unrelieved abdominal pain Problems urinating (including inability to urinate or burning while urinating). Visual changes Severe headache Flu-like symptoms Pain or redness in one of both of your breasts Pain, warmth, tenderness or swelling in your legs, especially the calf area Frequent nausea and vomiting Symptoms of depression or anxiety If you experience any of the following, call 911 or go to the nearest Emergency Room. Chest pain Problems breathing Seizure activity Partial or complete paralysis of a body part, slurred speech, weakness or drooping of the face, or a sudden inability to walk or hold your balance Allergies/Adverse Reactions: Allergies No Known Allergies Allergy (Verified 03/01/18 12:47) Medications to take at Discharge Multivitamin [Animal Shapes] 1 each PO DAILY 03/01/18 Please Follow Up With: Neisha Hawkins MD - [phone] When: Call to make an appointment with your doctor in 6 weeks. Primary Care Physician: Care Physician,No Primary [Primary Care Provider] - Test Results: Test results from this visit will be discussed in further detail at your follow-up appointment, if applicable. Proposed Discharge Date: 06/03/18
--- NOTE | 2018-06-01 14:46 | DCINST_ITS ---
Discharge Diet: No Restrictions Discharge Activity: May Shower, May Take a Tub Bath May resume sexual activity in: 4-6 weeks Additional Activity Instructions:: Nothing in the vagina for 4-6 weeks. You may return to work/school in 6 weeks. Additional Instructions: If you experience any of the following, contact your healthcare provider. * Bleeding that soaks a pad every hour for 2 hours * Fever 100.4 or higher * Unrelieved abdominal pain * Problems urinating (including inability to urinate or burning while urinating). * Visual changes * Severe headache * Flu-like symptoms * Pain or redness in one of both of your breasts * Pain, warmth, tenderness or swelling in your legs, especially the calf area * Frequent nausea and vomiting * Symptoms of depression or anxiety If you experience any of the following, call 911 or go to the nearest Emergency Room. * Chest pain * Problems breathing * Seizure activity * Partial or complete paralysis of a body part, slurred speech, weakness or drooping of the face, or a sudden inability to walk or hold your balance Allergies/Adverse Reactions: Allergies No Known Allergies Allergy (Verified 03/01/18 12:47) Medications to take at Discharge Multivitamin [Animal Shapes] 1 each PO DAILY 03/01/18 Please Follow Up With: Neisha Hawkins MD - [phone] When: Call to make an appointment with your doctor in 6 weeks. Primary Care Physician: Care Physician,No Primary [Primary Care Provider] - Test Results: Test results from this visit will be discussed in further detail at your follow- up appointment, if applicable. Proposed Discharge Date: 06/03/18
[2018-06-01] MEDS: Oxytocin 30 units/NS 500 ml 30 UNITS/500 ML IV.SOLN 167 UNITS IV (15:00)
[2018-06-01 16:30] VITALS: BP 99/58; PULSE 109; RESP 16; TEMP 37; O2SAT 97
[2018-06-01 20:00] VITALS: BP 117/56; PULSE 105; RESP 17; TEMP 36.6
[2018-06-01] MEDS: Ibuprofen 600 MG Tablet PO (20:12)
[2018-06-02] VITALS: BP 118/58; PULSE 77; RESP 17; TEMP 36.6
[2018-06-02 01:00] VITALS: BP 119/61; PULSE 88; RESP 16; TEMP 36.3; O2SAT 98
[2018-06-02 04:00] VITALS: PULSE 98; RESP 17; TEMP 36.6
[2018-06-02] MEDS: Ibuprofen 600 MG Tablet PO ×2 (07:40→16:25)
[2018-06-02 07:46] VITALS: BP 107/51; PULSE 95; RESP 16; TEMP 36.1; O2SAT 98
--- NOTE | 2018-06-02 08:02 | PCM.PN.OB ---
Subjective: 40 wk Doing well but a little uncomfortable at bottom with tear/repair. Breast feeding. no concerns otherwise. Baby 9# 1 oz Objective: Lying on R side. on couch holding baby - Physical Exam General: Alert, Oriented x3, Cooperative, No apparent distress HEENT: Atraumatic Neck: Supple Abdomen: Soft - Fundus firm NT approx at umbilicus to 1 cm above umbilicus Neurological: Cranial nerves II-XII grossly intact Psych/Mental Status: Normal Affect Vital Signs Temp Pulse Resp BP Pulse Ox 97.8 F 95 16 107/51 L 98 06/02/18 04:00 06/02/18 07:46 06/02/18 07:46 06/02/18 07:46 06/02/18 07:46 Oxygen Delivery Method Room Air Weight: 98.3 kg Body Mass Index (BMI) 32.0 Intake and Output for Last 24 Hours 05/31/18 06/01/18 06/02/18 23:59 23:59 23:59 Intake Total 5448 / 5448 Output Total 2700 / 2700 Balance 2748 / 2748 Laboratory Tests Past 24 Hrs 06/02/18 07:45 WBC Pending RBC Pending Hgb Pending Hct Pending MCV Pending MCH Pending MCHC Pending RDW Pending RDW Differential Pending Plt Count Pending Medical Necessity - Tobacco Use Smoking Status: Never smoker Assessment/Plan 40 wk Stable Pain at perineum with laceration. Advised ice pack prn. pain med prn. May use topical dermoplast or dibucaine. Continue care.
[2018-06-02 08:07] LABS: Hematocrit 29.8 % (37-47); Mean Corp Hgb Conc 33.6 g/gl (32-36); Mean Corpuscular Hgb 31.8 pg (27.0-32.0); Mean Corpuscular Volume 94.9 fL (81-99); Platelet Count 128 K/mm3 (150-450); RBC Distribution Width SD 48.1 fl (35.1-43.9); Red Blood Count 3.14 M/mm3 (4.2-5.4); White Blood Count 9.9 K/mm3 (4.4-11.0)
[2018-06-02 08:08] LABS: Scan Indicated on CBC? Y/N NO
[2018-06-02] MEDS: Multivitamins,Therapeutic Tablet 1 TABLET PO (10:39)
[2018-06-02 13:30] VITALS: BP 119/61; PULSE 88; RESP 16; TEMP 36.3; O2SAT 98
[2018-06-02 20:20] VITALS: BP 114/59; PULSE 94; RESP 16; TEMP 36.4
[2018-06-03 01:04] VITALS: BP 117/66; PULSE 87; RESP 16; TEMP 36
[2018-06-03] MEDS: Ibuprofen 600 MG Tablet PO ×2 (04:26→11:15)
[2018-06-03] MEDS: Senna/Docusate Sodium 1 Tablet PO (05:19)
--- NOTE | 2018-06-03 07:58 | PCM.PN.OB ---
Subjective: PPD#2 Breast feeding well. Pain control adequate. + flatus, neg BM Hemorrhoids and concerns about these, uncomfortable. Took stool softener , but no BM yet. Objective: Sitting semirecumbent in bed, holding sleeping baby skin to skin - Physical Exam General: Alert, Oriented x3, Cooperative, No apparent distress HEENT: Atraumatic Neck: Supple Abdomen: Soft - Fundus firm NT inferior to umbilicus Psych/Mental Status: Normal Affect Vital Signs Temp Pulse Resp BP Pulse Ox 96.8 F L 87 16 117/66 98 06/03/18 01:04 06/03/18 01:04 06/03/18 01:04 06/03/18 01:04 06/02/18 13:30 Oxygen Delivery Method Room Air Weight: 98.3 kg Body Mass Index (BMI) 32.0 Intake and Output for Last 24 Hours 06/01/18 06/02/18 06/03/18 23:59 23:59 23:59 Intake Total 5448 / 5448 Output Total 2700 / 2700 Balance 2748 / 2748 Laboratory Tests Past 24 Hrs 06/02/18 07:45 WBC 9.9 RBC 3.14 L Hgb 10.0 L Hct 29.8 L MCV 94.9 MCH 31.8 MCHC 33.6 RDW 14.0 RDW Differential 48.1 H Plt Count 128 L MPV 11.0 Medical Necessity - Tobacco Use Smoking Status: Never smoker Assessment/Plan 40 wk Stable Dischg home Hemorrhoids. Anusol HC bid for 2 wks. Stool softeners. RX sent in.
[2018-06-03 09:45] VITALS: BP 127/66; PULSE 76; RESP 16; TEMP 36.6; O2SAT 98
[2018-06-03] MEDS: Hydrocortisone 2.5% Crm 1 APPLIC TOPICAL (10:00)
== END 2018-06-03 11:50 | disposition home or self-care (01) | DRG 806 ==
LOC: WPOUT 20:16
PROVIDERS: Admitting Provider Obstetrics & Gynecology; Referring Provider Obstetrics & Gynecology; Visit Provider Obstetrics & Gynecology
DX: O36.63X0 Maternal care for excessive fetal growth, third trimester, not applicable or unspecified (principal); O87.2 Hemorrhoids in the puerperium; Z37.0 Single live birth; O70.1 Second degree perineal laceration during delivery; Z3A.40 40 weeks gestation of pregnancy
CPT/HCPCS: 59025; 59050; 84112; 85027; 86850; 86900; 99218; J7120; G0378; J2405

== ENCOUNTER → 2018-07-21 12:20 | Outpatient (CLI) | payer OTHER, SELFPAY ==
[2018-07-25 12:21] LABS: HPV HC, High Risk Negative (Negative)
[2018-07-25 12:54] LABS: HPV Reflexed? NOT INDICATED
== END ==
PROVIDERS: Referring Provider Obstetrics & Gynecology; Visit Provider Obstetrics & Gynecology
DX: Z12.4 Encounter for screening for malignant neoplasm of cervix (principal)
CPT/HCPCS: 88175; G0145

== ENCOUNTER → 2019-02-17 14:24 | Outpatient (CLI) | payer OTHER, SELFPAY ==
[2019-02-17 08:31] VITALS: BMI 32.0
== END ==
PROVIDERS: Referring Provider Physician Assistant Surgical; Visit Provider Physician Assistant Surgical
DX: J02.9 Acute pharyngitis, unspecified (principal)
CPT/HCPCS: 87070

== ENCOUNTER → 2019-07-30 | Outpatient (CLI) | payer OTHER, SELFPAY ==
[2019-02-17 08:31] VITALS: BMI 32.0
[2019-08-04 10:32] LABS: HPV APTIMA, High Risk Negative (Negative)
[2019-08-04 10:33] LABS: HPV Reflexed? YES, CHARGE PATIENT
== END | disposition home or self-care (01) ==
LOC: LABSPEC 16:52
PROVIDERS: Visit Provider Obstetrics & Gynecology
DX: Z12.4 Encounter for screening for malignant neoplasm of cervix (principal)
CPT/HCPCS: 87624; 88175; G0145

== ENCOUNTER → 2021-02-15 | Outpatient (CLI) | payer OTHER, SELFPAY | END | disposition home or self-care (01) | LOC: LABSPEC 09:09 | PROVIDERS: Visit Provider Physician Assistant | DX: Z20.822 Contact with and (suspected) exposure to COVID-19 (principal) | CPT/HCPCS: 87635; U0005; U0003 ==

== ENCOUNTER → 2021-11-13 | Outpatient (CLI) | payer OTHER, SELFPAY ==
[2021-11-16 14:02] LABS: HPV APTIMA, High Risk Negative (Negative)
== END | disposition home or self-care (01) ==
LOC: LABSPEC 14:11
PROVIDERS: PCP Internal Medicine; Visit Provider Student in an Organized Health Care Education/Training Program
DX: Z12.4 Encounter for screening for malignant neoplasm of cervix (principal)
CPT/HCPCS: 87624; 88175; G0145

== ENCOUNTER → 2022-05-23 | Outpatient (CLI) | payer OTHER, SELFPAY ==
[2022-05-23 12:43] LABS: Absolute Lymphocyte Count 1.67 X10^3/uL (0.83-4.51); Absolute Neutrophil Count 4.3 X10^3/uL (2.0-7.7); Basophil# 0.03 X10^3/uL; Basophil% 0.5 % (0-1); Eosinophil# 0.12 X10^3/uL; Eosinophils% 1.8 % (0-5); Hematocrit 36.9 % (37-47); Lymphocyte # 1.67 X10^3/ul (0.83-4.51); Lymphocyte % 25.5 % (19-41); Mean Corp Hgb Conc 35.2 g/dL (32-36); Mean Corpuscular Volume 90.9 fL (81-99); Mean Platelet Vol. 10.7 fl (6.2-12.0); Monocyte# 0.37 X10^3/uL; Monocyte% 5.7 % (0-10); NRBC Flagged by Analyzer 0 % (0-5); Neutrophil # 4.33 X10^3/uL (2.7-7.7); Neutrophil % 66.2 % (47-70); Platelet Count 190 K/mm3 (150-450); RBC Distribution Width CV 12.5 % (11.6-14.6); RBC Distribution Width SD 41.3 fl (35.1-43.9); Red Blood Count 4.06 M/mm3 (4.2-5.4); White Blood Count 6.5 K/mm3 (4.4-11.0)
[2022-05-23 13:46] LABS: HIV - WCH Non-Reactive (Nonreactive); Hepatitis B Surface Antigen Non-Reactive (Nonreactive); Hepatitis C Antibody Non-Reactive (Nonreactive); Rubella IgG Reactive (Nonreactive); Syphilis Antibodies Non-reactive
[2022-05-24 16:25] LABS: V-Zoster IgG (Immunity) 1065 index (Immune >165)
[2022-05-25 06:08] LABS: Chlamydia By Nucleic Acid AMP Negative (Negative)
[2022-05-25 10:44] LABS: Gonococcus By Nucleic Acid AMP Negative (Negative)
== END | disposition home or self-care (01) ==
LOC: WOBLAB 11:41
PROVIDERS: PCP Internal Medicine; Visit Provider Student in an Organized Health Care Education/Training Program
DX: Z34.81 Encounter for supervision of other normal pregnancy, first trimester (principal)
CPT/HCPCS: 36415; 85025; 86703; 86762; 86780; 86787; 86803; 87086; 87088; 87340; 87491; 87591

== ENCOUNTER → 2022-10-16 | Outpatient (CLI) | payer OTHER, SELFPAY ==
[2022-10-16 17:08] LABS: Hematocrit 33.7 % (37-47); Hemoglobin 11.4 g/dL (12.0-15.0); Mean Corp Hgb Conc 33.8 g/dL (32-36); Mean Corpuscular Hgb 31.9 pg (27.0-32.0); Mean Corpuscular Volume 94.4 fL (81-99); Mean Platelet Vol. 10.7 fl (6.2-12.0); Platelet Count 146 K/mm3 (150-450); RBC Distribution Width CV 13.2 % (11.6-14.6); RBC Distribution Width SD 45.3 fl (35.1-43.9); Red Blood Count 3.57 M/mm3 (4.2-5.4); White Blood Count 6.6 K/mm3 (4.4-11.0)
[2022-10-16 17:12] LABS: Glucose Challenge Gest 1H 50g 144 mg/dL (70-140)
[2022-10-16 17:49] LABS: Syphilis Antibodies Non-reactive
== END | disposition home or self-care (01) ==
LOC: WOBLAB 15:40
PROVIDERS: PCP Internal Medicine; Visit Provider Student in an Organized Health Care Education/Training Program
DX: Z34.82 Encounter for supervision of other normal pregnancy, second trimester (principal)
CPT/HCPCS: 36415; 82950; 85027; 86780

== ENCOUNTER → 2022-10-31 | Outpatient (CLI) | payer OTHER, SELFPAY ==
[2022-10-31 09:45] LABS: Glucose GTT-Gestation. Fasting 75 mg/dL (<105)
[2022-10-31 10:27] LABS: Glucose GTT-Gestational 1 Hr 172 mg/dL (<190)
[2022-10-31 12:16] LABS: Glucose GTT-Gestational 2 Hr 163 mg/dL (<165)
[2022-10-31 13:07] LABS: Glucose GTT-Gestational 3 Hr 82 L (<145)
== END | disposition home or self-care (01) ==
LOC: WOBLAB 08:35
PROVIDERS: PCP Internal Medicine; Visit Provider Student in an Organized Health Care Education/Training Program
DX: R73.02 Impaired glucose tolerance (oral) (principal)
CPT/HCPCS: 36415; 82951; 82952

== ENCOUNTER → 2022-12-18 | Outpatient (CLI) | payer OTHER, SELFPAY ==
[2022-12-18 11:45] LABS: Absolute Lymphocyte Count 1.39 X10^3/uL (0.83-4.51); Absolute Neutrophil Count 6.2 X10^3/uL (2.0-7.7); Basophil# 0.02 X10^3/uL; Basophil% 0.2 % (0-1); Eosinophils% 1.2 % (0-5); Hematocrit 33.8 % (37-47); Hemoglobin 11.4 g/dL (12.0-15.0); Lymphocyte # 1.39 X10^3/ul (0.83-4.51); Lymphocyte % 16.7 % (19-41); Mean Corp Hgb Conc 33.7 g/dL (32-36); Mean Corpuscular Hgb 31.2 pg (27.0-32.0); Mean Corpuscular Volume 92.6 fL (81-99); Mean Platelet Vol. 10.7 fl (6.2-12.0); Monocyte# 0.62 X10^3/uL; Monocyte% 7.4 % (0-10); NRBC Flagged by Analyzer 0 % (0-5); Neutrophil # 6.15 X10^3/uL (2.7-7.7); Neutrophil % 73.9 % (47-70); Platelet Count 154 K/mm3 (150-450); RBC Distribution Width CV 13.2 % (11.6-14.6); RBC Distribution Width SD 44.8 fl (35.1-43.9); Red Blood Count 3.65 M/mm3 (4.2-5.4); White Blood Count 8.3 K/mm3 (4.4-11.0)
== END | disposition home or self-care (01) ==
LOC: WOBLAB 11:24
PROVIDERS: PCP Internal Medicine; Visit Provider Student in an Organized Health Care Education/Training Program
DX: Z34.83 Encounter for supervision of other normal pregnancy, third trimester (principal); Z36.85 Encounter for antenatal screening for Streptococcus B; Z3A.00 Weeks of gestation of pregnancy not specified
CPT/HCPCS: 36415; 85025; 87081

== ENCOUNTER 2023-01-09 09:20 | Inpatient (IN) | payer OTHER, SELFPAY ==
[2023-01-09] VITALS (23 sets, daily range): BP systolic 88–122; BP diastolic 33–74; PULSE 66–84; RESP 14–18; TEMP 35.8–36.7; O2SAT 96–100; BMI 31.9
--- NOTE | 2023-01-09 10:21 | HP.PCM.OB_ITS ---
History and Physical Date of Admission: 01/09/23 Chief complaint: Elective primary section History present illness: 32-year-old at 39 weeks and 3 days with AMISHA 01/13/2023 arrives for primary elective section. Denies headache, vision changes, chest pain, shortness of breath, nausea vomit, or quadrant pain. Patient states good movement. Obstetric history: G1: 40-week female 9 pounds 3 ounces G2: Current Past medical history: None Medications: vitamin Allergies: No known drug allergies Past surgical history: [place] teeth extraction, gum surgery Social history: Denies smoking, alcohol use, drug use Family history: Denies history DVT or PE Review of systems: Besides above pertinent positives a full review of systems was performed and found to be negative Physical exam: Vitals: Blood pressure 121/74 pulse 77 SpO2 100% on room air General: Normal appearing no acute distress HEENT: Normocephalic atraumatic no cervical lymphadenopathy Cardiac/respiratory: No use of accessory muscles, nonlabored breathing Abdomen: Soft, nontender, gravid Extremities: No peripheral edema normal peripheral pulses Psych: Normal affect and remainder nonpressured speech Labs: Pending Assessment and plan: 32-year-old G2, P1 at 39 weeks and 3 days arrives for primary elective section. Educated patient on primary elective section observed benefits alternatives including increased risk of infection, damage surrounding organs, and increased risk for blood loss compared to vaginal delivery. Patient states understanding and wishes to proceed. Also discussed risks include but are not limited to visceral vascular injury, prolonged hospitalization, blood loss and need for transfusion, reoperation. Patient stated understanding wish to proceed. All questions answered and consent signed. For primary section for 2 g Ancef
[2023-01-09] MEDS: Lactated Ringers 1,000 ML 999 ML IV ×2 (10:30→16:58)
[2023-01-09 10:44] LABS: Absolute Neutrophil Count 5.1 X10^3/uL (2.0-7.7); Basophil# 0.03 X10^3/uL; Basophil% 0.4 % (0-1); Eosinophil# 0.08 X10^3/uL; Eosinophils% 1.2 % (0-5); Hematocrit 32.2 % (37-47); Lymphocyte % 18.7 % (19-41); Mean Corp Hgb Conc 34.2 g/dL (32-36); Mean Corpuscular Hgb 30.5 pg (27.0-32.0); Mean Corpuscular Volume 89.2 fL (81-99); Mean Platelet Vol. 11.3 fl (6.2-12.0); Monocyte# 0.45 X10^3/uL; Monocyte% 6.5 % (0-10); NRBC Flagged by Analyzer 0 % (0-5); Neutrophil # 5.07 X10^3/uL (2.7-7.7); Neutrophil % 72.9 % (47-70); Platelet Count 143 K/mm3 (150-450); RBC Distribution Width CV 13.6 % (11.6-14.6); RBC Distribution Width SD 44.5 fl (35.1-43.9); Red Blood Count 3.61 M/mm3 (4.2-5.4)
[2023-01-09] MEDS: Acetaminophen 500 MG Tablet 1000 MG PO ×3 (11:02→22:58)
[2023-01-09 11:32] LABS: Syphilis Antibodies Non-reactive
[2023-01-09] MEDS: Lactated Ringers 1,000 ML 150 ML IV (11:35)
[2023-01-09] MEDS: Sodium Citrate/Citric Acid 30 ML UDC PO (11:51)
[2023-01-09] MEDS: Cefazolin 2 GM in 0.9% Normal Saline 100 ML IV (11:56)
--- NOTE | 2023-01-09 12:42 | EX.PCM.OBRPT ---
Maternal Data Information Final AMISHA: 01/13/23 Details Operative Information Date of Procedure: 01/09/23 Pre-Operative Diagnosis: Ibarra intrauterine , elective section Post-Operative Diagnosis: Ibarra intrauterine , elective section Indications Narrative: 32-year-old G2, P1 at 39/3 weeks, AMISHA 01/13/2023, admitted for primary elective section. Patient had been consented on elective section, discussion of risks and benefits of versus vaginal delivery had been reviewed in office. All risk, benefits, alternatives were discussed with the patient. Risks include but are not limited to: Risk of bleeding to the point of transfusion, infection, injury to surrounding tissue including bowel/bladder potentially requiring prolonged Arrieta catheter use, VTE, ICU admission. Patient aware and consented. 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 Patient placed in the supine position with a left lateral tilt. Prepped and draped in the usual sterile fashion. Pfannenstiel skin incision made with scalpel and carried down through subtenons tissue. Fascia nicked on either side of the midline extended bilaterally using Copeland scissors. Riley clamps placed at the superior fascial edge which was tented up and underlying rectus muscles dissected off bluntly and sharply at midline. Riley clamps then moved to inferior fascial edge which was tented up and underlying rectus muscles were dissected off in a similar fashion. Rectus muscles superiorly using hemostat and peritoneum entered bluntly. Bladder blade placed. Low transverse uterine incision made with scalpel. Amniotomy clear fluid. Hand placed into the uterine cavity and had elevated to the level of the hysterotomy. Head delivered followed by body, no nuchal cord. Cord clamped and cut. Baby handed to nursing. Placenta delivered spontaneously. Uterus exteriorized and cleared of all clots. Hysterotomy closed with a running stitch followed by a second vertical implicating stitch. Hysterotomy hemostatic with [id number] stitches and Sunny. Peritoneum closed with a running stitch. Rectus muscles reapproximated using suture. Fascia closed with a running stitch. Subcutaneous tissue irrigated. Subcutaneous tissue reapproximated with suture. Skin closed with a running subcuticular stitch. At the end of the procedure all needle, lap, sponge counts were correct. UOp: 100 cc clear yellow urine Infant A Gender: Male (1 minute): 8 (5 minute): 9 Delayed Cord Clamping: Yes Complications Complications: None
[2023-01-09] MEDS: Oxytocin 15 Units/NS 250ml 15 UNITS/250 ML IV.SOLN 83 UNITS IV (13:05)
[2023-01-09] MEDS: Ketorolac 30 MG/ML Syringe IV ×2 (13:33→19:55)
[2023-01-09] MEDS: Lactated Ringers 1,000 ML 100 ML IV (16:18)
[2023-01-09] MEDS: Ondansetron 4 MG/2 ML Vial IV (16:35)
[2023-01-09] MEDS: 0.9% Saline Lock 10 ML Syringe IV (19:56)
--- NOTE | 2023-01-09 21:42 | NURSING ---
pt called out, feeling lightheaded and wanted to have her blood pressure checked. this RN took her BP 104/49. pt does not report any nausea. this RN will continue to monitor.
[2023-01-10] VITALS (9 sets, daily range): BP systolic 99–125; BP diastolic 47–65; PULSE 72–101; RESP 14–18; TEMP 36.3–36.9; O2SAT 96–99
[2023-01-10] MEDS: Ketorolac 30 MG/ML Syringe IV ×2 (01:52→08:10)
[2023-01-10 05:23] LABS: Hemoglobin 8.6 g/dL (12.0-15.0); Mean Corp Hgb Conc 31.9 g/dL (32-36); Mean Corpuscular Hgb 29.9 pg (27.0-32.0); Mean Corpuscular Volume 93.8 fL (81-99); Mean Platelet Vol. 10.9 fl (6.2-12.0); Platelet Count 113 K/mm3 (150-450); RBC Distribution Width CV 13.9 % (11.6-14.6); RBC Distribution Width SD 46.6 fl (35.1-43.9); Red Blood Count 2.88 M/mm3 (4.2-5.4); White Blood Count 7.6 K/mm3 (4.4-11.0)
[2023-01-10] MEDS: Acetaminophen 500 MG Tablet 1000 MG PO ×3 (05:24→19:59)
--- NOTE | 2023-01-10 08:25 | PN.OBGYN_ITS ---
Subjective Subjective No overnight complaints. Denies weakness, dizziness, chest pain, shortness of breath Objective Data Objective Data Vital Signs: Vital Signs Temp Pulse Resp BP Pulse Ox O2 Del Method 97.8 F 72 16 116/62 97 Room Air 01/10/23 08:00 01/10/23 08:00 01/10/23 08:00 01/10/23 08:00 01/10/23 08:00 01/10/23 08:00 Oxygen Delivery Method Room Air Weight: 216 lb 7.903 oz Body Mass Index (BMI) 31.9 Intake & Output: Intake and Output for Last 24 Hours 01/08/23 01/09/23 01/10/23 23:59 23:59 23:59 Intake Total 2529.17 / 2529.17 933.33 / 933.33 Output Total 3150 / 3150 850 / 850 Balance -620.83 / -620.83 83.33 / 83.33 Lab / Micro Data 01/10/23 05:15 Labs: Laboratory Results - last 24 hr 01/09/23 10:30: WBC 7.0, RBC 3.61 L, Hgb 11.0 L, Hct 32.2 L, MCV 89.2, MCH 30.5, MCHC 34.2, RDW Std Deviation 44.5 H, RDW Coeff of Clayton 13.6, Plt Count 143 L, MPV 11.3, Immature Gran % (Auto) 0.300, Neut % (Auto) 72.9 H, Lymph % (Auto) 18.7 L, Marshall % (Auto) 6.5, Eos % (Auto) 1.2, Baso % (Auto) 0.4, Absolute Neuts (auto) 5.1, Absolute Lymphs (auto) 1.30, Nucleated RBC % 0, Syphilis Total Ab Non- reactive, Blood Type O POSITIVE, Antibody Screen NEGATIVE 01/10/23 05:15: WBC 7.6, RBC 2.88 L, Hgb 8.6 L, Hct 27.0 L, MCV 93.8 D, MCH 29.9, MCHC 31.9 L D, RDW Std Deviation 46.6 H, RDW Coeff of Clayton 13.9, Plt Count 113 L, MPV 10.9 Physical Exam Const alert, oriented x3, no apparent distress, average body habitus, healthy appearing and well nourished HEENT normocephalic and moist oral mucous membranes Eyes PERRL Neck full ROM Resp normal respiratory effort, no retractions and no use of accessory muscles GI GI Narrative: Soft, nontender, bandage clean dry and intact Extremity normal to inspection, full ROM and no clubbing, cyanosis or edema Neuro moves all extremities, no focal motor deficits and no sensory deficits noted Psych mental status grossly normal, affect normal, speech normal and activity/motor behavior normal Assessment & Plan (1) delivery delivered: PLAN: Postop day 1 status post primary section elective. Breast- feeding. Pain well-controlled. Acute blood loss anemia secondary to surgery asymptomatic will give Venofer today. Possibly home-going tomorrow
[2023-01-10] MEDS: Enoxaparin 40 MG/0.4 ML Syringe SC (09:38)
[2023-01-10] MEDS: 0.9% Saline Lock 10 ML Syringe IV (09:39)
[2023-01-10] MEDS: Senna/Docusate Sodium 1 Tablet PO ×2 (09:40→18:50)
[2023-01-10] MEDS: Ibuprofen 600 MG Tablet PO ×2 (13:12→19:59)
--- NOTE | 2023-01-10 22:20 | NURSING ---
Pt's IV discontinued today per day shift RN. Discontinuation not documented on worklist. This RN inactivated intervention on worklist.
[2023-01-11] MEDS: Acetaminophen 500 MG Tablet 1000 MG PO ×2 (01:59→08:59)
[2023-01-11] MEDS: Ibuprofen 600 MG Tablet PO ×2 (01:59→08:58)
[2023-01-11 02:00] VITALS: BP 116/64; PULSE 77; RESP 16; TEMP 36.6; O2SAT 98
--- NOTE | 2023-01-11 04:13 | PCM.DC.BLA ---
Discharge Summary Date of Admission: 01/09/23 Date of Discharge: 01/11/23 Summary: Patient arrived on 01/09/2023 for scheduled primary elective section at term. Subsequently had primary section on 01/09/2023. Routine postoperative recovery and discharged home on 01/11/2023 Meaningful Use Info Meaningful Use Diagnoses (Choose all that apply): None applicable Discharge Plan Admission Admit Date/Time: 01/09/23 09:20 Primary Reason for Your Visit: section Attending Provider: Tabitha Garnett Primary Care Provider: Bhargavi Weeks Instructions Additional Instructions / Restrictions: Regular diet. Okay to shower. No tub baths for 2 weeks. No intercourse for 6 to 8 weeks. No lifting over 25 pounds for 2 to 3 weeks. Call if fevers, chills, chest pain, shortness of breath. Follow-up 2 weeks postoperatively Discharge Orders/Prescriptions Prescriptions: New oxycodone 5 mg tablet 5 mg PO Q6H PRN (Reason: pain (scale score 7-10)) 5 Days Qty: 14 0RF Discontinued Gummies 400 mcg-35 mg- 25 mg-5 mg tablet,chewable PO DAILY Referrals / Follow Up: Bhargavi Weeks DO [Primary Care Provider] - Disposition Disposition (needs filled in before D/C Order can be placed): Home, Self Care
--- NOTE | 2023-01-11 04:14 | PCM.PN.OB ---
Subjective Subjective No overnight complaints Objective Data Objective Data Vital Signs: Vital Signs Temp Pulse Resp BP Pulse Ox O2 Del Method 97.8 F 77 16 116/64 98 Room Air 01/11/23 02:00 01/11/23 02:00 01/11/23 02:00 01/11/23 02:00 01/11/23 02:00 01/11/23 02:00 Oxygen Delivery Method Room Air Weight: 216 lb 7.903 oz Body Mass Index (BMI) 31.9 Intake & Output: Intake and Output for Last 24 Hours 01/09/23 01/10/23 01/11/23 23:59 23:59 23:59 Intake Total 2529.17 / 2529.17 1043.33 / 1043.33 Output Total 3150 / 3150 850 / 850 Balance -620.83 / -620.83 193.33 / 193.33 Lab / Micro Data 01/10/23 05:15 Labs: Laboratory Results - last 24 hr 01/10/23 05:15: WBC 7.6, RBC 2.88 L, Hgb 8.6 L, Hct 27.0 L, MCV 93.8 D, MCH 29.9, MCHC 31.9 L D, RDW Std Deviation 46.6 H, RDW Coeff of Clayton 13.9, Plt Count 113 L, MPV 10.9 Physical Exam Const alert, oriented x3, no apparent distress, average body habitus, healthy appearing and well nourished HEENT normocephalic and moist oral mucous membranes Eyes PERRL Neck full ROM Resp normal respiratory effort, no retractions and no use of accessory muscles GI GI Narrative: Soft, nontender, bandage clean dry and intact, uterus firm and below umbilicus Extremity normal to inspection and full ROM Neuro moves all extremities and no focal motor deficits Psych mental status grossly normal, affect normal, speech normal and activity/motor behavior normal Assessment & Plan (1) delivery delivered: PLAN: Postoperative day 2 status post elective primary section. Breast-feeding. Pain well-controlled. Okay to discharge home today
[2023-01-11 08:21] VITALS: BP 130/71; PULSE 74; RESP 16; TEMP 36.6; O2SAT 97
[2023-01-11] MEDS: Senna/Docusate Sodium 1 Tablet PO (08:59)
== END 2023-01-11 10:00 | disposition home or self-care (01) | DRG 787 ==
PROVIDERS: Admitting Provider Student in an Organized Health Care Education/Training Program; PCP Internal Medicine; Visit Provider Student in an Organized Health Care Education/Training Program
PROC: 10D00Z1 Extraction of Products of Conception, Low, Open Approach (ICD-10-PCS; CPT 59514; principal; 2023-01-09 11:45)
DX: O82 Encounter for cesarean delivery without indication (principal); D62 Acute posthemorrhagic anemia; O90.81 Anemia of the puerperium; Z3A.39 39 weeks gestation of pregnancy; Z37.0 Single live birth
CPT/HCPCS: 59025; 59050; 85025; 85027; 86780; 86850; 86900; 86901; 99221; 99252; J1756; J7120; A4216; G0378; G0463; J2405

== ENCOUNTER 2023-01-16 15:20 | Inpatient (IN) | payer OTHER, SELFPAY ==
[2023-01-16] VITALS (52 sets, daily range): BP systolic 106–136; BP diastolic 53–75; PULSE 57–94; RESP 16–18; TEMP 36.3–37; O2SAT 96–99; BMI 28.8
[2023-01-16] MEDS: Magnesium Sulfate 4gm/100mL 4 GM/100 ML IV.SOLN. IV (16:05)
[2023-01-16] MEDS: Magnesium Sulfate 20 GM/500 ML BAG IV (16:27)
[2023-01-16 16:36] LABS: Hematocrit 35.8 % (37-47); Hemoglobin 11.6 g/dL (12.0-15.0); Mean Corp Hgb Conc 32.4 g/dL (32-36); Mean Corpuscular Hgb 29.8 pg (27.0-32.0); Mean Platelet Vol. 9.9 fl (6.2-12.0); Platelet Count 253 K/mm3 (150-450); RBC Distribution Width CV 14.2 % (11.6-14.6); RBC Distribution Width SD 46.9 fl (35.1-43.9); Red Blood Count 3.89 M/mm3 (4.2-5.4); White Blood Count 6.5 K/mm3 (4.4-11.0)
--- NOTE | 2023-01-16 17:02 | NURSING ---
1530-pt brought by wheel chair to room, comes from dr office, dr jonny lovell brought pt to floor. to start mag draw labs
--- NOTE | 2023-01-16 17:06 | HP.PCM.OB_ITS ---
History and Physical Date of Admission: 01/16/23 Chief complaint: Headache History present illness: 32-year-old postoperative day 7 status post primary elective section at term. Arrived to office with elevated blood pressures at home and unresolved headache. States spots in vision intermittent. Denies chest pain, shortness of breath, nausea vomit, right upper quadrant pain. Obstetric history: G1: 40-week female 9 pounds 3 ounces G2: Elective primary section male 8 pounds 4 ounces Past medical history: None Medications: vitamin, Tylenol, ibuprofen Allergies: No known drug allergies Past surgical history: [place] teeth extraction, gum surgery Social history: Denies smoking, alcohol, drug use Family history: Denies history DVT or PE Review of systems: Besides above pertinent positives a full review of systems was performed and found to be negative Physical exam: Vitals: Blood pressure 121/72 pulse 69 General: Normal-appearing no acute distress HEENT: Normocephalic/atraumatic no cervical lymphadenopathy Cardiac/respiratory: No use accessory muscles, nonlabored breathing Abdomen: Soft, nontender, negative right upper quadrant pain, nondistended Extremities: No peripheral edema normal peripheral pulses Psych: Normal affect normal demeanor nonpressured speech Labs: White blood cell count 6.5 hemoglobin 11.6 hematocrit 35.8% platelets 253. CMP pending Assessment and plan: 32-year-old postop day 7 status post primary elective section arrived from home with unresolved headache and visual changes after taking ibuprofen and Tylenol with elevated blood pressures at home and elevated blood pressures in office. Based on these findings diagnosed with preeclampsia with severe features based on elevated blood pressures along with unresolved headache with visual changes. Educated patient on diagnosis of preeclampsia with severe features and treatment plan with magnesium, discussed risks of seizure, ID, stroke. Patient and partner state understanding and wished to proceed. All questions were answered. For magnesium for 24 hours we will continue to monitor blood pressures and treat with antihypertensives if needed.
[2023-01-16 17:21] LABS: ALB/GLOB Ratio 0.8 RATIO (0.9-2.4); AST(SGOT) 22 U/L (15-37); Alanine Aminotransfer ALT/SGPT 41 U/L (13-56); Albumin, Serum 3.2 g/dL (3.2-5.0); Alkaline Phosphatase 115 U/L (45-117); Anion Gap 7 (5-15); BUN 13 mg/dL (7-18); BUN/Creat Ratio 20.4 RATIO (10-20); Calcium,Total 8.6 mg/dL (8.5-10.1); Chloride 112 mmol/L (98-107); Creatinine, Serum 0.64 mg/dL (0.55-1.02); EST Glomerular Filtration Rate 114 mL/min (>60); Est Glom Filt Rate - Afr Amer 138 mL/min (>60); Estimated Creatinine Clearance 130.66 ml/min; Globulin 3.9 g/dL (2.2-4.2); Glucose 77 mg/dL (74-106); LDH 258 U/L (84-246); Potassium 3.7 mmol/L (3.5-5.1); Protein, Total 7.1 g/dL (6.4-8.2); Sodium Level 139 mmol/L (136-145)
[2023-01-16 23:31] LABS: Magnesium 5.3 mg/dL (1.6-2.6)
[2023-01-17] VITALS (17 sets, daily range): BP systolic 97–122; BP diastolic 48–70; PULSE 62–83; RESP 16–18; TEMP 36.2–36.9; O2SAT 95–100
[2023-01-17] MEDS: Magnesium Sulfate 20 GM/500 ML BAG IV ×2 (02:36→12:32)
[2023-01-17] MEDS: Acetaminophen 500 MG Tablet 1000 MG PO (03:59)
[2023-01-17 05:25] LABS: Magnesium 6.4 mg/dL (1.6-2.6)
--- NOTE | 2023-01-17 07:38 | PCM.PN.OB ---
Subjective Subjective No overnight complaints. States headache resolved. Denies headache, vision change, chest pain, shortness of breath, nausea vomit, right upper quadrant pain. Objective Data Objective Data Vital Signs: Vital Signs Temp Pulse Resp BP Pulse Ox O2 Del Method 97.1 F L 65 16 111/61 96 Room Air 01/17/23 06:53 01/17/23 06:53 01/17/23 06:53 01/17/23 06:53 01/17/23 06:53 01/17/23 06:53 Oxygen Delivery Method Room Air Weight: 195 lb 5.273 oz Body Mass Index (BMI) 28.8 Intake & Output: Intake and Output for Last 24 Hours 01/15/23 01/16/23 01/17/23 23:59 23:59 23:59 Intake Total 300 / 300 1400 / 1400 Output Total 900 / 900 500 / 500 Balance -600 / -600 900 / 900 Lab / Micro Data 01/16/23 16:05 01/16/23 16:05 Labs: Laboratory Results - last 24 hr 01/16/23 16:05: WBC 6.5, RBC 3.89 L, Hgb 11.6 L, Hct 35.8 L, MCV 92.0, MCH 29.8, MCHC 32.4, RDW Std Deviation 46.9 H, RDW Coeff of Clayton 14.2, Plt Count 253, MPV 9.9, Sodium 139, Potassium 3.7, Chloride 112 H, Carbon Dioxide 20.0 L, Anion Gap 7, BUN 13, Creatinine 0.64, Estim Creat Clear Calc 130.66, Est GFR (MDRD) Af Amer 138, Est GFR (MDRD) Non-Af 114, BUN/Creatinine Ratio 20.4 H, Glucose 77, Calcium 8.6, Total Bilirubin 0.20, AST 22, ALT 41, Alkaline Phosphatase 115, Lactate Dehydrogenase 258 H, Total Protein 7.1, Albumin 3.2, Globulin 3.9, Albumin/Globulin Ratio 0.8 L 01/16/23 23:10: Magnesium 5.3 H* 01/17/23 05:06: Magnesium 6.4 H* Physical Exam Const alert, oriented x3, no apparent distress, average body habitus, healthy appearing and well nourished HEENT normocephalic and moist oral mucous membranes Eyes PERRL Neck full ROM Resp normal respiratory effort, no retractions and no use of accessory muscles GI GI Narrative: Soft, nontender, incision clean dry and intact Extremity normal to inspection and full ROM Neuro moves all extremities and no focal motor deficits Psych mental status grossly normal, affect normal, speech normal and activity/motor behavior normal Assessment & Plan (1) Preeclampsia: PLAN: Postop day 8 admitted for preeclampsia with severe features based on unresolved headache with visual changes and elevated blood pressures. Patient asymptomatic with resolved headache and resolved visual changes. Patient remains asymptomatic blood pressures within normal limits on no medications. We will continue magnesium and stop today at the 24-hour oral. Will monitor overnight and evaluate in the morning. Educated patient on care plan, all questions answered
[2023-01-17] MEDS: Enoxaparin 40 MG/0.4 ML Syringe SC (10:20)
[2023-01-17 13:31] LABS: Magnesium 6.8 mg/dL (1.6-2.6)
[2023-01-18 02:38] VITALS: BP 115/71; PULSE 68; RESP 18
--- NOTE | 2023-01-18 06:43 | PCM.DC.BLA ---
Discharge Summary Date of Admission: 01/16/23 Date of Discharge: 01/18/23 Summary: Patient arrived on 01/16/2023 with headache with visual changes and elevated blood pressures diagnosed with preeclampsia with severe features. Given magnesium for 24 hours. Patient needed no antihypertensive medications during her visit. And was discharged home on no antihypertensive medications headache resolved. Discharged home on 01/18/2023 Meaningful Use Info Meaningful Use Diagnoses (Choose all that apply): None applicable Discharge Plan Admission Admit Date/Time: 01/16/23 15:20 Primary Reason for Your Visit: Headache Attending Provider: El Garnett Primary Care Provider: Bhargavi Weeks Instructions Additional Instructions / Restrictions: Regular diet. Okay to shower. No tub baths for 2 weeks. No lifting over 25 pounds for 2 to 3 weeks. No intercourse for 6 to 8 weeks. Call if fevers, chills, chest pain, shortness of breath, headache, visual changes. Follow-up Saturday for blood pressure check Discharge Orders/Prescriptions Prescriptions: No Action acetaminophen [Tylenol Extra Strength] 500 mg tablet 1,000 mg PO Q6H ibuprofen [IBU] 400 mg tablet 400 mg PO Q6H Gummies 400 mcg-35 mg- 25 mg-5 mg tablet,chewable 2 tab PO DAILY Referrals / Follow Up: Bhargavi Weeks DO [Primary Care Provider] - Disposition Disposition (needs filled in before D/C Order can be placed): Home, Self Care
--- NOTE | 2023-01-18 06:45 | PN.OBGYN_ITS ---
Subjective Subjective No overnight complaints. Headache resolved, no visual changes. Denies chest pain, shortness of breath, nausea vomit, right upper quadrant pain. Objective Data Objective Data Vital Signs: Vital Signs Temp Pulse Resp BP Pulse Ox O2 Del Method 98 F 68 18 115/71 96 Room Air 01/17/23 20:35 01/18/23 02:38 01/18/23 02:38 01/18/23 02:38 01/17/23 20:35 01/18/23 02:38 Oxygen Delivery Method Room Air Weight: 195 lb 5.273 oz Body Mass Index (BMI) 28.8 Intake & Output: Intake and Output for Last 24 Hours 01/16/23 01/17/23 01/18/23 23:59 23:59 23:59 Intake Total 300 / 300 2815.00 / 2815.00 Output Total 900 / 900 1700 / 1700 Balance -600 / -600 1115.00 / 1115.00 Lab / Micro Data 01/16/23 16:05 01/16/23 16:05 Labs: Laboratory Results - last 24 hr 01/17/23 12:48: Magnesium 6.8 H* Physical Exam Const alert, oriented x3, no apparent distress, average body habitus, healthy appearing and well nourished HEENT normocephalic and moist oral mucous membranes Eyes PERRL Neck full ROM Resp normal respiratory effort, no retractions and no use of accessory muscles GI GI Narrative: Soft, nontender, bandage clean dry and intact Extremity normal to inspection, full ROM and no clubbing, cyanosis or edema Neuro moves all extremities and no focal motor deficits Psych mental status grossly normal, affect normal, speech normal and activity/motor behavior normal Assessment & Plan (1) Preeclampsia: PLAN: Hospital day 2 with preeclampsia with severe features based on headache wi th visual changes and elevated blood pressures. Headache resolved, no visual changes. Patient feels asymptomatic. Blood pressures well controlled on no antihypertensive medications. Okay to discharge home, given home precautions and monitoring. To follow-up on Saturday for blood pressure check
== END 2023-01-18 07:30 | disposition home or self-care (01) | DRG 776 ==
PROVIDERS: Admitting Provider Obstetrics & Gynecology; PCP Internal Medicine; Referring Provider Obstetrics & Gynecology; Visit Provider Obstetrics & Gynecology
DX: O14.15 Severe pre-eclampsia, complicating the puerperium (principal)
CPT/HCPCS: 36415; 80053; 83615; 83735; 85027

== ENCOUNTER 2025-05-20 12:11 | Day surgery (SDC) | payer OTHER, SELFPAY ==
--- NOTE | 2025-05-17 12:29 | PCM.HP.BLA ---
History and Physical Date of Admission: 05/20/25 Expand All Collapse All Pre-Op History and Physical HPI: The patient is a 34 year old female presenting for pre-operative visit. She is scheduled for laparoscopic bilateral salpingectomy, for desires sterilization on 05/20/25. Procedure discussed along with risks, benefits and complications. Other alternatives discussed for management. Consent form signed? Yes. Past Medical History PAST MEDICAL HISTORY Diagnosis Date ? 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 Pre-eclampsia, (HCC) 2022 PAST SURGICAL HISTORY PAST SURGICAL HISTORY Procedure Laterality Date ? DELIVERY ONLY 01/09/2023 ? PAST SURGICAL HISTORY OF extraction of wisdom teeth ? PAST SURGICAL HISTORY OF 2017 gum surgery CURRENT MEDICATIONS Current Outpatient Medications Medication Sig Dispense Refill ? norgestimate-ethinyl estradiol (SPRINTEC) 0.25-0.035 mg tablet Take 1 tablet by mouth once daily. 84 tablet 3 No current facility-administered medications for this visit. ALLERGIES: Zithromax [Azithromycin] PERSONAL HISTORY: [Social History] [Social History] Tobacco Use ? Smoking status: Never ? Smokeless tobacco: Never Vaping Use ? Vaping status: Never Used Substance Use Topics ? Alcohol use: No ? Drug use: Never FAMILY HISTORY: Family History FAMILY HISTORY Problem Relation Age of Onset ? other (mitral valve regurgitation) Mother ? Hypertension Mother ? Hypertension Father ? other (hypertension) Father ? Heart Sister ? Hypertension Paternal Grandmother ? Emphysema Paternal Grandmother ? Colon Cancer Paternal Grandmother ? Ischemic Heart Disease Paternal Grandfather REVIEW OF SYMPTOMS: negative except as noted above PHYSICAL EXAMINATION: VITALS: Blood pressure 124/70, height 175.3 cm (5' 9), weight 77.1 kg (170 lb), last menstrual period 04/07/2025. GENERAL: The patient is well nourished, well hydrated in no acute distress. , The patient is oriented to time, place, and person. NECK: full range of motion LUNGS: Clear to auscultation bilaterally. no wheezes, rhonchi or rales HEART: Regular rate and rhythm, Normal heart sounds, and No murmurs or gallops IMPRESSION: 34yo desires sterilization PLAN: laparoscopic bilateral salpingectomy Pt has been counseled on risks/benefits and alternatives of surgery including but not limited to anesthesia, bleeding, infection, injury to pelvic structures including bowel, bladder, ureters and vessels. Pt wishes to proceed with surgery at this time. Pre and post op instructions reviewed I have reviewed and updated past medical and surgical history, medications and allergies Earline Canales MD Office Visit on 05/04/2025 Note shared with patient
[2025-05-20] VITALS (9 sets, daily range): BP systolic 111–147; BP diastolic 60–82; PULSE 72–82; RESP 12–16; TEMP 36.9–37.1; O2SAT 95–99; BMI 24.7
[2025-05-20 12:53] LABS: Hematocrit 37.0 % (37-47); Hemoglobin 13.1 g/dL (12.0-15.0); Mean Corp Hgb Conc 35.4 g/dL (32-36); Mean Corpuscular Volume 89.2 fL (81-99); Mean Platelet Vol. 10.0 fl (6.2-12.0); Platelet Count 172 K/mm3 (150-450); RBC Distribution Width CV 12.1 % (11.6-14.6); RBC Distribution Width SD 39.4 fl (35.1-43.9); Red Blood Count 4.15 M/mm3 (4.2-5.4); White Blood Count 6.6 K/mm3 (4.4-11.0)
[2025-05-20 12:54] LABS: Internal QC Validated? YES +Cl - CLEAR BKGD; Pregnancy, Urine Negative Negative
[2025-05-20] MEDS: Lactated Ringers 1,000 ML 15 ML IV (13:00)
--- NOTE | 2025-05-20 13:12 | PCM.PRE.AN2 ---
ASA Classification* ASA Classification ASA Classification: 2 Assessment & Plan Anesthesia* Anesthesia Assessment Anesthesia Assessment: Discussed sedation and/or anesthesia options, risks, benefits, and alternatives with patient/parents/legal guardian/POA. Questions invited. The patient/parents/legal guardian/POA seems to understand and agrees to proceed with anesthesia plan. Reviewed the physical assessment, medical history, allergy history and patient home medications list prior to surgery/procedure/anesthetic and documented any changes. Performed airway and anesthesia risk assessments. Anesthesia Type Anesthesia Type: General History Source History Obtained from:: Patient and Chart Anesthesia Focused Assessment* Temperature: 98.7 F Pulse Rate: 72 Blood Pressure: 111/60 Respiratory Rate: 16 Pulse Ox: 99 Oxygen Delivery Method: Room Air Airway Assessment Mouth opens: >3 cm Mallampati Score: II Teeth Condition: Intact Neck Range of motion (ROM): Full ROM Labs Anesthesia Preop lab: CBC WBC, (4.4-11.0) 6.6 K/mm3 Today, 12:45 RBC, (4.2-5.4) 4.15 M/mm3 L Today, 12:45 Hgb, (12.0-15.0) 13.1 g/dL Today, 12:45 Hct, (37-47) 37.0 % Today, 12:45 Plt Count, (150-450) 172 K/mm3 Today, 12:45 CHEMISTRY Potassium, (3.5-5.1) 3.7 mmol/L 01/16/23, 16:05 Sodium, (136-145) 139 mmol/L 01/16/23, 16:05 Magnesium, (1.6-2.6) 6.8 mg/dL H* 01/17/23, 12:48 BUN, (7-18) 13 mg/dL 01/16/23, 16:05 Creatinine, (0.55-1.02) 0.64 mg/dL 01/16/23, 16:05 Glucose, (74-106) 77 mg/dL 01/16/23, 16:05 TSH, (0.358-3.74) 1.58 uIU/mL 11/01/17, 14:19 COAG HCG, Quant, (<9 non-preg) < 1 mIU/mL 07/26/17, 14:26 Urine Test Negative Negative Today, 12:32 Pre-Assessment Diagnosis/Proposed Procedure Planned Operative Procedure(s): (B) Laparoscopic bilateral Salpingectomy Anesthesia History 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 When Was Last Pacemaker Check QUESTION #4 FULL TEXT: You/Your Family Experience fever (hyperthermia) with Anesthesia Last Oral Intake Last Oral intake: Last Oral Intake NPO since 22:00 05/20/25 12:56 Meds taken in AM with sips of No 05/20/25 12:56 water? Meds patient instructed to take am of surgery PONV PONV - fruit and vegetable inspector: PONV - fruit and vegetable inspector Female Yes 05/05/25 15:08 HX of Motion Sickness No 05/05/25 15:08 HX of N/V After Surgery No 05/05/25 15:08 Non-Smoker Yes 05/05/25 15:08 Duration of Surgery greater No 05/05/25 15:08 than 60 minutes Number of Risk Factors 2 05/05/25 15:08 PONV Score Moderate Risk 05/05/25 15:08 Height & Weight Height & Weight: Anesthesia: Height & Weight Height 5 ft 9 in 05/20/25 12:56 Weight: 75.9 kg 05/20/25 12:56 Body Mass Index (BMI) 24.7 05/20/25 12:56 Respiratory Assessment Respiratory Assessment - fruit and vegetable inspector: Respiratory Tract Infection Hx - fruit and vegetable inspector Hx Respiratory Tract Infection No 05/05/25 15:08 STOP Sleep Apnea STOP Sleep Apnea - fruit and vegetable inspector: STOP Sleep Apnea - fruit and vegetable inspector Hx Hypertension No 05/05/25 15:08 Hx Sleep Apnea No 05/05/25 15:08 CPAP BIPAP Do you snore loudly (louder No 05/05/25 15:08 than talking or can be heard Do you often feel tired/ No 05/05/25 15:08 fatigued/ sleepy during daytime? Has anyone observed you stop No 05/05/25 15:08 breathing during sleep? STOP Results Negative 05/05/25 15:08 QUESTION #5 FULL TEXT : Do you snore loudly (louder than talking or can be heard through closed doors)? 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 Specify any problems Hx of Preganancy in last 3 No 05/05/25 15:08 Months Nurse Filling Out Transfusion VCHRISTIN 05/05/25 15:08 & Questions: Date: 05/05/25 05/05/25 15:08 Time: 15:09 05/05/25 15:08 Patient unable to answer at this time (ie. confused, unrespo /Reproduction History /Reproductive History - fruit and vegetable inspector: /Reproductive Hx- fruit and vegetable inspector Hx Now No 05/05/25 15:08 Gestational Age (in weeks): EDC: Hx Hx Para Hx Section SAB No 05/05/25 15:08 Does the father of the baby or his family experience fever w Father of the baby Malignant Hypertension history comment Active Medications Active Medications: Current Medications Generic Name Dose Route Start Last Admin Trade Name Freq PRN Reason Stop Dose Admin Lactated Ringer's 1,000 mls @ 15 mls/hr 05/20/25 12:15 05/20/25 13:00 IV 15 mls/hr .Q48H ANDRE Administration PFSH Medical History Non-smoker History of Holter monitoring Cardiology follow-up encounter COVID-19 Encounter for screening for COVID-19 Gave to child recently Home Medications ?Medication ?Instructions ?Recorded ?Last Taken ?Type multivitamin (Daily Multi-Vitamin 1 tab PO DAILY 05/05/25 05/19/25 History tablet) norgestimate 0.25 mg-ethinyl 1 tab PO DAILY 05/05/25 05/19/25 History estradiol 0.035 mg tablet (Sprintec (28)) Allergy/AdvReac Type Severity Reaction Status Date / Time No Known Allergies Allergy Verified 05/20/25 12:55 Family History Other Heart disease Hypertension Surgical History History of dental surgery History of surgery H/O colposcopy with cervical biopsy [place] teeth removed Social History Smoking Status: Never smoker alcohol intake: never Review of Systems (Anesthesia) ROS Narrative System reviewed and no additional complaints, except as documented.
--- NOTE | 2025-05-20 13:45 | FALS_PTH ---
PATIENT: PABLO SCHULZ LOC: [facility] [place] U#:[id number] AGE/SX: 34/F ROOM: RE05/20/[address]: Dr. Earline Horton, MDDOB: 1990 BED: DIS: 05/20/2025 SPEC #: [id number] RECD: 05/20/25 18:23 STATUS: CECILIA RENoemi #: [id number] ALEX: 05/20/25 13:[address]: Earline Horton DEPT: SURGICAL PATHOLOGY RECD BY: Mahad Mustafa ENTERED: 05/21/25 11:04 SP TYPE: FALL TUBES OTHR DR: Dr. Bhargavi Weeks, DO Tissues: A - Fallopian tube Procedures: Surgery Specimen Level II HEADER OPERATION: Laparoscopic bilateral salpingectomy PRE-OP DIAGNOSIS: Sterilization TISSUE SUBMITTED: A. Bilateral fallopian tubes MICROSCOPIC DIAGNOSIS A. Fallopian tubes, bilateral salpingectomy: - Complete luminal cross-section confirmed x2. MICROSCOPIC DESCRIPTION Slides are reviewed. GROSS DESCRIPTION A. Received in formalin labeled with the patient's name and date of . Designated as bilateral fallopian tubes are 2 undesignated pink-purple fimbriated fallopian tubes, 6.0 x 0.5 cm and 7.3 x 0.4 cm. Paratubal cysts are identified on both tubes, <0.1 cm to 0.7 cm. Chemical Manager sections are submitted in 2 cassettes. [place] 05/21/2025 CPT:06713
[2025-05-20] MEDS: Midazolam 2 MG/2 ML Syringe IV (13:51)
[2025-05-20] MEDS: Lidocaine 1% (5 ml sdv) 5 ML Vial IV (13:57)
[2025-05-20] MEDS: Ketorolac 30 MG/ML Syringe IV (14:28)
[2025-05-20] MEDS: fentaNYL 100 MCG/2 ML Ampul IV (14:28)
--- NOTE | 2025-05-20 14:48 | PCM.POST.ANE ---
Anesthesia: Postop Eval I Current Vital Signs Temperature: 98.6 F Pulse Rate: 81 Blood Pressure: 129/70 Respiratory Rate: 12 Pulse Ox: 98 Oxygen Delivery Method: Room Air Assessment Airway patent: Yes Spontaneous unlabored respirations: Yes Mental status: Awake and Calm nausea: No Vomiting: No Anesthesia Complication: No Fluid Hydration Crystalloid volume administer (ml): 800 Total IV fluid infused: 800 Progress Note Anesthesia document: Postop Eval 1 completed: Yes
--- NOTE | 2025-05-20 14:53 | OP.PCM_ITS ---
Operative Report (Standard) Operative Information Date of Procedure: 05/20/25 Pre-Operative Diagnosis: sterilization request Post-Operative Diagnosis: same Surgery/Procedure Performed: Laparoscopic bilateral salpingectomy audit manager: Yes Rail Track Maintainer: Mei Shea Tasks completed by specimen preparation assistant: Opening & closing, Dissecting tissue and Insert Trochanter Additional environmental services assistant?: Yes Additional Fact Checker #2: nik partida ms4 Tasks completed by environmental services assistant #2: Closing Additional environmental services assistant?: No Type of Anesthesia: General and Local RN Documented Start/Stop Times: Operation Date: 05/20/25 13:45 Case Time Into Pre-Op 05/20/25 12:14 Out of Pre-Op 05/20/25 13:46 Anesthesia Start 05/20/25 13:50 Into Room 05/20/25 13:50 Procedure Start 05/20/25 14:10 Procedure End 05/20/25 14:30 Anesthesia End 05/20/25 14:42 Out of Room 05/20/25 14:42 Into Recovery 05/20/25 14:50 Procedure Start Time: 14:10 Procedure Stop Time: 14:30 Select all DRAINS/GRAFTS/IMPLANTS that apply: None Special Medications: 0.5 % marcaine Estimated Blood Loss: <5cc Fluids Replaced: 800 Specimen collected: Yes Description of specimen(s) removed: bilateral fallopian tubes Description of surgery: After informed consent was obtained patient was taken to the operating room she was placed in supine position she was given anesthesia. She was then placed in the [facility] and she was prepped and draped in normal sterile fashion. Bladder was drained prior to the start of procedure. At this time attention was turned to the vaginal portion where weighted speculum placed at posterior fornix vagina single-tooth tenaculum was used to gently grasp the internal the cervix. uterus was gently sounded to approximately cm. Uterine manipulator was placed without difficulty. Legs then placed in parallel with the abdomen the tenaculum and the weighted speculum were removed. 2 towel clamps were placed at level of umbilicus. Marcaine was injected infraumbilical and a small incision was made. The 5 mm trocar was placed under direct visualization. CO2 gas was used to insufflate the intra-abdominal cavity. Upon inspection no gross abnormalities appreciated- the uterus tubes and ovaries appeared to be normal. At this time then the LLQ and RLQ ports were placed First Marcaine was injected and small incision was made a knife and the 5 mm trocars were placed. At this time then tubes were traced back to the fimbriated ends. Enseal was used to coagulate and ligate along mesosalpynx bila terally until tubes removed completely. Good hemostasis was appreciated. At this time procedure was deemed complete successful. The gas was desufflated on from the intra-abdominal cavity. The trochars were removed. Skin was closed using 4-0 Monocryl in a subcutaneous fashion. Dermabond glue was placed. Instrument lap and needle counts were correct ?2. The uterine manipulator was removed. Va ginal sweep was performed it was negative. There were no complications anticipated normal postoperative course for this patient. Surgical Findings: normal tubes and ovaries bilateral Complications Complications: No Admit VTE Documentation VTE Present on Admission: Yes VTE Mechan Device Prophylaxis: SCD's VTE Pharm Prophylaxis ordered?: No Reason prophylaxis not ordered: Treatment Not Indicated
--- NOTE | 2025-05-20 14:53 | PCM.DC ---
Discharge Instructions DC O2, CPAP, BIPAP needs Home O2 Discharge instructions: No Dressing / Incision May resume sexual activity in: 1-2 weeks Lifting Restrictions: 20-25 lbs Dressing / Incision Call your doctor if your incision/area has: Continuous Slow Oozing, Sudden Increased Bleeding, Increased Pain/ Swelling, Increased Redness, Foul Smelling Discharge and Swelling at the incision site Call your doctor if you observe: Fever of 101 or Higher, Inability to urinate, Inability to have a bowel movement, Using more than 1 pad per hour and Uncontrolled pain Additional Dressing/Incision Instructions:: You have skin glue over your incision sites, do not pick off. You may shower and let the soap and water run over the incision sites and dab dry. Follow Up Care Please Follow Up With: Earline Horton MD When: I will call you with pathology results in 1-2 weeks, if you need an appointment to be seen please call [phone] Test Results: Test results from this visit will be discussed in further detail at your follow-up appointment, if applicable. Discharge Plan Admission Attending Provider: Earline Horton Primary Care Provider: Bhargavi Weeks Instructions Print Language: Armenian Discharge Orders/Prescriptions Prescriptions: No Action norgestimate-ethinyl estradiol [Sprintec (28)] 0.25-0.035 mg tablet 1 tab PO DAILY multivitamin [Daily Multi-Vitamin] Tablet 1 tab PO DAILY Referrals / Follow Up: Bhargavi Weeks DO [Primary Care Provider, Internal Medicine] Disposition Disposition (needs filled in before D/C Order can be placed): Home, Self Care
--- NOTE | 2025-05-20 15:45 | POSTOPAN2_ITS ---
Anesthesia Postop Eval I Sum Postop Eval Completion status Anesthesia document: Postop Eval 1 completed: Yes Anesthesia Postop Eval I Summary Anesthesia Postop Eval I Summary: Anesthesia Postop Eval I: Assessment Summary Airway patent Yes 05/20/25 14:48 CHIEF DIVERSITY [email or web address].SHOF Spontaneous unlabored Yes 05/20/25 14:48 CHIEF DIVERSITY OFFICER.SHOF respirations Mental status Awake,Calm 05/20/25 14:48 CHIEF DIVERSITY OFFICER.SHOF nausea No 05/20/25 14:48 CHIEF DIVERSITY OFFICER.SHOF Vomiting No 05/20/25 14:48 CHIEF DIVERSITY OFFICER.SHOF Anesthesia Postop Eval I: Fluid Summary Crystalloid volume administer 800 05/20/25 14:48 CHIEF DIVERSITY OFFICER.SHOF (ml) Colloids volume administered ( ml) Blood Product volume administered (ml) Total IV fluid infused 800 05/20/25 14:48 CHIEF DIVERSITY OFFICER.SHOF Anesthesia Postop Eval I: Summary Notes Anesthesia Complication No 05/20/25 14:48 CHIEF DIVERSITY OFFICER.SHOF Anesthesia Complication Comment: Post-operative progress note Anesthesia: Postop Eval II Evaluation Mental status: Awake and Calm Pain Level: 1 nausea: No Vomiting: No Complications Anesthesia Complication: No
--- NOTE | 2025-05-20 15:45 | PCM.POSTANE2 ---
Anesthesia Postop Eval I Sum Postop Eval Completion status Anesthesia document: Postop Eval 1 completed: Yes Anesthesia Postop Eval I Summary Anesthesia Postop Eval I Summary: Anesthesia Postop Eval I: Assessment Summary Airway patent Yes 05/20/25 14:48 BREAKING MACHINE OPERATOR.SHOF Spontaneous unlabored Yes 05/20/25 14:48 BREAKING MACHINE OPERATOR.SHOF respirations Mental status Awake,Calm 05/20/25 14:48 BREAKING MACHINE OPERATOR.SHOF nausea No 05/20/25 14:48 BREAKING MACHINE OPERATOR.SHOF Vomiting No 05/20/25 14:48 BREAKING MACHINE OPERATOR.SHOF Anesthesia Postop Eval I: Fluid Summary Crystalloid volume administer 800 05/20/25 14:48 BREAKING MACHINE OPERATOR.SHOF (ml) Colloids volume administered ( ml) Blood Product volume administered (ml) Total IV fluid infused 800 05/20/25 14:48 BREAKING MACHINE OPERATOR.SHOF Anesthesia Postop Eval I: Summary Notes Anesthesia Complication No 05/20/25 14:48 BREAKING MACHINE OPERATOR.SHOF Anesthesia Complication Comment: Post-operative progress note Anesthesia: Postop Eval II Evaluation Mental status: Awake and Calm Pain Level: 1 nausea: No Vomiting: No Complications Anesthesia Complication: No
== END 2025-05-20 16:31 | disposition home or self-care (01) ==
LOC: SDC 12:12 → AC 12:15
PROVIDERS: PCP Internal Medicine; Referring Provider Obstetrics & Gynecology; Visit Provider Obstetrics & Gynecology
PROC: (CPT 58661; principal; 2025-05-20 13:30)
DX: Z30.2 Encounter for sterilization (principal)
CPT/HCPCS: 58661; 00840; 81025; 85027; 88302; 93005; J2405